=== PATIENT | male | born 1975 | race Caucasian/White ===

== ENCOUNTER 2018-05-15 14:24 | Emergency (ER) | payer OTHER ==
[~2018-05-15] VITALS: Ht 185.4 cm; Wt 128.0 kg
[~2018-05-15 14:24] MED LIST: CPR500 PO; FLUO20CA35 PO; LRT5 PO; METR-163 PO; OXYC-57 PO; PROM25TA PO
[2018-05-15 14:32] VITALS: Ht 185.4 cm; Wt 128.0 kg
--- NOTE | 2018-05-15 14:54 | EMERGENCY ROOM VISIT NOTE ---
ED Visit Note First contact with patient: 14:42 CHIEF COMPLAINT: Redness and swelling of the right lower extremity HISTORY OF PRESENT ILLNESS: This 42-year-old male patient presents to the emergency department, ambulatory, complaining of pain, redness, and swelling of the right lower extremity. 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 On Friday, he noticed pain in the pollard, and by Friday he states the swelling and redness developed. Symptoms have been worsening since then. The area has become red, warm, and very painful. The patient denies fever, chills, nausea, or loss of appetite. Movement of the right ankle is mildly decreased because of the pain. The patient's tetanus shot is up to date. The patient describes a pulsating sensation and states the swelling has been spreading down into the ankle and foot. REVIEW OF SYSTEMS: A 10 system review of systems was performed with positives and pertinent negatives listed in the history of present illness. All other systems were reviewed and are negative. ALLERGIES: None MEDICATIONS: None PMH: None SOCIAL HISTORY: The patient lives locally with family. He denies drug, alcohol use. He admits to smoking cigarettes. PHYSICAL EXAM: Vital Signs: Reviewed Nurse's notes, Temperature 36.6C, vital signs stable. GENERAL: This is a 42-year-old obese white male, in no acute distress, is non toxic in appearance, well-developed, well-nourished. SKIN: The lower extremity, distal to the knee and extending to the proximal foot is red, warm, very tender, and swollen. There is no lymphangitic streaking. There is no discharge. There is no fluctuance. 2+ edema noted. There is no induration. HEART: Regular rate and rhythm without murmur, gallop, or rub. LUNGS: Clear to auscultation bilaterally without wheezes, rales, or rhonchi. NEURO: Alert and oriented to person, place, and time. Normal sensation to light and sharp touch. Capillary reflex less than 2 seconds. Peripheral pulses 2 + bilaterally. RADIOLOGY: R VENOUS DOPP LOWER EXT UNILAT HISTORY: 42 years-old Male RLE pain/swelling acute pain and swelling of the right lower extremity COMPARISON: None available TECHNIQUE: Multiple real-time sonographic images of the right lower extremity the venous structures were obtained assessing grayscale appearance, color and spectral flow FINDINGS: There is normal flow, compressibility, phasicity and augmentation of the right lower extremity deep venous structures. Mild nonspecific subcutaneous edema about the lower leg. IMPRESSION: No sonographic evidence of deep venous thrombosis. The above report was generated using voice recognition software. It may contain grammatical, syntax or spelling errors. Electronically signed by: Darnell Torrez M.D. 05/15/2018 4:09 PM Dictated Date/Time: 05/15/2018 4:08 PM EMERGENCY DEPARTMENT COURSE: I examined the patient. IV access obtained, labs drawn. Labs reviewed. No leukocytosis, anemia, thrombus cytopenia. Renal, hepatic function and electrolytes without significant abnormalities. Ultrasound performed reviewed by myself and radiologist as above. Labs reviewed. I discussed the findings with the patient at bedside. He was given IV Ancef and p.o. Bactrim for the likely infection. I discussed with the patient the importance of outpatient antibiotics and advised him to have a follow-up in 24-48 hours. Patient states he is hoping to go back to work Friday. I advised him that he should be cleared by a medical provider prior to returning to work due to the infection. The patient verbalized agreement and understanding. Discharge instructions reviewed. The patient was discharged home in good condition. I attest that I have personally reviewed the patient's current medication list. Patient was found to have normal blood pressure on screening and does not require follow-up. Differential diagnosis includes cellulitis, abscess, DVT, superficial thrombus, septic joint, necrotizing fasciitis, burn, dermatitis, impetigo, erythema multiforme, bite, osteomyelitis, Lira-Salvatore Syndrome, gangrene, malignancy , and others DIAGNOSIS: Cellulitis of the right lower extremity The chart was completed utilizing [employer] voice recognition software. Grammatical errors, random word insertions, pronoun errors, and incomplete sentences are an occasional consequence of this system due to software limitations, ambient noise, and hardware issues. Any formal questions or concerns about the content, text, or information contained within the body of this dictation should be directly addressed to the provider for clarification. Current/Historical Medications Scheduled Cephalexin Monohydrate (Keflex), 500 MG PO QID Sulfa/Trimethoprim (Bactrim Ds 800MG/160MG), 1 TAB PO BID Allergies Coded Allergies: No Known Allergies (Unverified , 05/15/18) Vital Signs Date Time Temp Pulse Resp B/P (MAP) Pulse Ox O2 Delivery O2 Flow Rate FiO2 05/15/18 18:02 36.6 81 22 124/66 96 05/15/18 17:09 78 22 122/57 95 Room Air 05/15/18 14:32 36.6 86 18 160/102 95 Room Air Laboratory Results 05/15/18 16:22 Red Blood Count 4.14, Mean Corpuscular Volume 92.5, Mean Corpuscular Hemoglobin 30.7, Mean Corpuscular Hemoglobin Concent 33.2, Mean Platelet Volume 10.1, Neutrophils (%) (Auto) 55.3, Lymphocytes (%) (Auto) 29.7, Monocytes (%) (Auto) 9.7, Eosinophils (%) (Auto) 4.7, Basophils (%) (Auto) 0.2, Neutrophils # (Auto) 4.59, Lymphocytes # (Auto) 2.46, Monocytes # (Auto) 0.80, Eosinophils # (Auto) 0.39, Basophils # (Auto) 0.02 05/15/18 16:22 Test 05/15/18 16:22 White Blood Count 8.29 K/uL (4.8-10.8) Red Blood Count 4.14 M/uL (4.7-6.1) Hemoglobin 12.7 g/dL (14.0-18.0) Hematocrit 38.3 % (42-52) Mean Corpuscular Volume 92.5 fL (80-100) Mean Corpuscular Hemoglobin 30.7 pg (25-34) Mean Corpuscular Hemoglobin Concent 33.2 g/dl (32-36) Platelet Count 266 K/uL (130-400) Mean Platelet Volume 10.1 fL (7.4-10.4) Neutrophils (%) (Auto) 55.3 % Lymphocytes (%) (Auto) 29.7 % Monocytes (%) (Auto) 9.7 % Eosinophils (%) (Auto) 4.7 % Basophils (%) (Auto) 0.2 % Neutrophils # (Auto) 4.59 K/uL (1.4-6.5) Lymphocytes # (Auto) 2.46 K/uL (1.2-3.4) Monocytes # (Auto) 0.80 K/uL (0.11-0.59) Eosinophils # (Auto) 0.39 K/uL (0-0.5) Basophils # (Auto) 0.02 K/uL (0-0.2) RDW Standard Deviation 44.6 fL (36.4-46.3) RDW Coefficient of Variation 13.2 % (11.5-14.5) Immature Granulocyte % (Auto) 0.4 % Immature Granulocyte # (Auto) 0.03 K/uL (0.00-0.02) Anion Gap 7.0 mmol/L (3-11) Est Creatinine Clear Calc Drug Dose 177.5 ml/min Estimated GFR () 130.4 Estimated GFR (Non- 112.5 BUN/Creatinine Ratio 29.5 (10-20) Calcium Level 8.8 mg/dl (8.5-10.1) Total Bilirubin 0.2 mg/dl (0.2-1) Aspartate Amino Transf (AST/SGOT) 16 U/L (15-37) Alanine Aminotransferase (ALT/SGPT) 22 U/L (12-78) Alkaline Phosphatase 83 U/L (45-117) Total Protein 7.8 gm/dl (6.4-8.2) Albumin 3.4 gm/dl (3.4-5.0) Globulin 4.4 gm/dl (2.5-4.0) Albumin/Globulin Ratio 0.8 (0.9-2) Medications Administered Medications (Trade) Dose Ordered Sig/Rosa Route Start Time Stop Time Status Last Admin Dose Admin Cefazolin Sodium 1000 mg/Dextrose 57.5 ml @ 100 mls/hr NOW STAT IV 05/15/18 16:30 05/15/18 17:04 DC 05/15/18 17:08 100 MLS/HR Trimethoprim/ Sulfamethoxazole (Septra Ds 800/ 160MG Tab) 1 tab NOW STAT PO 05/15/18 16:30 05/15/18 16:37 DC 05/15/18 17:08 1 TAB Sodium Chloride 1,000 ml @ 999 mls/hr Q1H1M STAT IV 05/15/18 16:30 05/15/18 17:30 DC 05/15/18 16:30 999 MLS/HR Ketorolac Tromethamine (Toradol Inj) 30 mg NOW STAT IV 05/15/18 17:18 05/15/18 17:19 DC 05/15/18 17:18 30 MG Departure Information Impression Primary Impression: Cellulitis of right lower extremity Dispostion Home / Self-Care Condition GOOD Prescriptions Cephalexin Monohydrate (Keflex) 500 Mg Cap 500 MG PO QID for 10 Days, #40 CAP Prov: Leena Garcia PA-C 05/15/18 Sulfa/Trimethoprim (Bactrim Ds 800MG/160MG) Tab 1 TAB PO BID for 10 Days, #20 TAB Prov: Leena Garcia PA-C 05/15/18 Referrals Geronimo Hoover M.D. (PCP) Patient Instructions ED Infec Skin Cellulitis, [facility] Additional Instructions You were seen in the emergency department today for cellulitis of the right lower extremity. You were given IV antibiotics. Cephalexin(Keflex) 500mg: Take one pill four times daily for 10 days for your skin infection. All antibiotics can cause diarrhea. If this occurs and you feel worse or it does not resolve in 1-2 days follow up with your doctor or return to the Emergency Department as this could be signs of serious underlying problems. Any medication can cause an allergic reaction, stop the pills immediately and return to the ER for rash, hives, breathing difficulties, or swelling. Trimethoprim-Sulfamethoxazole(Bactrim DS): Take one pill twice daily for 10 days for your skin infection. All antibiotics can cause diarrhea. If this occurs and you feel worse or it does not resolve in 1-2 days follow up with your doctor or return to the Emergency Department as this could be signs of serious underlying problems. Any medication can cause an allergic reaction, stop the pills immediately and return to the ER for rash, hives, breathing difficulties, or swelling. You should have this reevaluated in 24-48 hours. This can be done in the emergency department or by her primary care provider. Do not return to work until cleared by medical professional. Use the crutches to help with ambulation and avoid weightbearing on the extremity. Ibuprofen(Motrin, Advil) may be used for fever or pain. Use 600mg every six hours as needed. Take with food. Avoid using more than 2400mg in a 24 hour period. Do not use 2400mg per day for more than three consecutive days without physician direction. Prolonged inappropriate use can lead to stomach upset or ulcers. (AND/OR) Acetaminophen(Tylenol) may be used for fever or pain. Use 1000mg every six hours as needed. Avoid using more than 3000mg in a 24 hour period. *Alternate these medications every 3-4 hours for increased pain control. Return immediately to the emergency department for any significantly worsening pain, swelling, redness, numbness or tingling of the extremity, discoloration of the toes, fever, body aches, chills, decreased appetite, or other concerning symptoms.
--- NOTE | 2018-05-15 16:10 | DIAGNOSTIC IMAGING REPORT ---
R VENOUS DOPP LOWER EXT UNILAT HISTORY: 42 years-old Male RLE pain/swelling acute pain and swelling of the right lower extremity COMPARISON: None available TECHNIQUE: Multiple real-time sonographic images of the right lower extremity the venous structures were obtained assessing grayscale appearance, color and spectral flow FINDINGS: There is normal flow, compressibility, phasicity and augmentation of the right lower extremity deep venous structures. Mild nonspecific subcutaneous edema about the lower leg. IMPRESSION: No sonographic evidence of deep venous thrombosis. The above report was generated using voice recognition software. It may contain grammatical, syntax or spelling errors. Electronically signed by: Darnell Torrez M.D. 05/15/2018 4:09 PM Dictated Date/Time: 05/15/2018 4:08 PM
[2018-05-15] MEDS ORDERED: SODIUM CHLORIDE 0.9% 1000ML 1,000 ML IV STA (16:30)
[2018-05-15] MEDS ORDERED: CEFAZOLIN IV 1,000 MG in DEXTROSE 5% 50ML 50 ML IV STA (16:30)
[2018-05-15] MEDS ORDERED: SULFAMETHOXAZOLE/TRIMETHOPRIM DS 800/160MG TAB PO STA (16:30)
[2018-05-15 16:47] LABS: BASO % 0.2 %; BASO ABS # 0.02 K/uL (0-0.2); EOS % 4.7 %; EOS ABS # 0.39 K/uL (0-0.5); HEMATOCRIT 38.3 % (42-52); HEMOGLOBIN 12.7 g/dL (14.0-18.0); IG# 0.03 K/uL (0.00-0.02); LYMPH % 29.7 %; LYMPH ABS # 2.46 K/uL (1.2-3.4); MEAN CELL VOLUME 92.5 fL (80-100); MEAN CORPUSCULAR HEMOGLOBIN 30.7 pg (25-34); MEAN CORPUSCULAR HGB CONC 33.2 g/dl (32-36); MEAN PLATELET VOLUME 10.1 fL (7.4-10.4); MONO % 9.7 %; NEUT % 55.3 %; NEUT ABS # 4.59 K/uL (1.4-6.5); PLATELET COUNT 266 K/uL (130-400); RED CELL DISTRIBUTION WIDTH CV 13.2 % (11.5-14.5); RED CELL DISTRIBUTION WIDTH SD 44.6 fL (36.4-46.3); WHITE BLOOD COUNT 8.29 K/uL (4.8-10.8)
[2018-05-15 17:04] LABS: ALBUMIN 3.4 gm/dl (3.4-5.0); CALCIUM 8.8 mg/dl (8.5-10.1); CREATININE 0.76 mg/dl (0.60-1.40); POTASSIUM 4.3 mmol/L (3.5-5.1); TOTAL PROTEIN 7.8 gm/dl (6.4-8.2)
[2018-05-15] MEDS ORDERED: KETOROLAC TROMETHAMINE 30 MG/ML VIAL IV STA (17:18)
[2018-05-15] MEDS ORDERED: CEPH500C PO (17:21)
[2018-05-15] MEDS ORDERED: SULF800T23 PO (17:21)
[2018-05-15 18:02] VITALS: BP 124/66; PULSE 81; TEMP 36.6; O2SAT 96
== END 2018-05-15 18:02 | disposition home or self-care (01) ==
LOC: C.EDB 14:25 → C.EDC 18:02
DX: L03.115 Cellulitis of right lower limb (principal)

== ENCOUNTER 2021-07-27 09:21 | Inpatient (IN) ==
[2021-07-27] MEDS ORDERED: SODIUM CHLORIDE 0.9% 1000ML 1,000 ML IV STA (09:43)
[2021-07-27] MEDS ORDERED: ONDANSETRON INJ 2 MG/ML 2 ML VIAL IV STA (09:43)
[2021-07-27] MEDS ORDERED: cefTRIAXone SODIUM 1,000 MG/50 ML BAG IV STA (09:43)
--- NOTE | 2021-07-27 09:59 | Emergency Department Note ---
Impression & Plan Cellulitis of chest wall, Axillary lymphadenopathy, Chest pain ED Provider Note NAME: ANASTASIA GARNICA AGE: 45 SEX: M : 1975 ARRIVES VIA: Walk-In INFORMANT: Patient, ED PROVIDER(S): Werner Herzog DO CHIEF COMPLAINT: Chest pain HPI: The patient is a 45-year-old male who presented to the emergency department for right-sided chest pain. The patient describes right-sided chest pain which is in his right axilla. He noticed this a few days ago as a swelling but now has a golf ball sized swelling under his right axilla. He complains of nausea vomiting and severe pain. He denies having any fever. 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 He does not remember ever having Lyme disease. He does not complain of any headache or joint pain. He states his pain is moderate to severe and worsened with palpation over the right axilla. He is not seen a provider prior to coming to the emergency department. ROS: See above HPI for pertinent positives & negatives. A total of 10 systems reviewed and were otherwise negative. PAST MEDICAL HISTORY: See Below PAST SURGICAL HISTORY: See Below FAMILY HISTORY: See Below SOCIAL HISTORY: See Below HOME MEDICATIONS: See Below ALLERGIES: See Below VITALS: See Below PHYSICAL EXAMINATION: GENERAL: The patient is awake and alert. He is very anxious appearing and appears to be uncomfortable. EYES: The conjunctivae are clear. The pupils are round and reactive. EARS, NOSE, MOUTH AND THROAT: The nose is without any evidence of any deformity. Mucous membranes are moist. Tongue is midline. NECK: The neck is nontender and supple. RESPIRATORY: Normal respiratory effort is noted there is no evidence of wheezing rhonchi or rales CARDIOVASCULAR: Regular rate and rhythm noted there no murmurs rubs or gallops normal S1 normal S2. GASTROINTESTINAL: The abdomen is soft. Abdomen is nontender. MUSCULOSKELETAL/EXTREMITIES: There is no evidence of gross deformity full range of motion is noted in the hips and shoulders. SKIN: There is an area under the right breast consistent with a recent tick bite and removal. There is also significant swelling in the right axilla with surrounding erythema. This involves the right upper arm as well as the right chest wall. NEUROLOGIC: Patient is awake alert and oriented x3 strength is symmetric patellar reflexes are 2+ bilaterally MEDICAL DECISION MAKING: The patient is a 45-year-old male who presented to the emergency department in significant pain. The patient was found to have significant cellulitis on his right upper chest wall and into his right axilla. He had multiple reactive lymph nodes on exam as well as by CT. I was concerned there may be an abscess. No abscess was noted by CT. I discussed the patient's laboratory and radiographic studies with him. He was treated with IV fluids IV pain medication and IV antibiotics. He was still in very significant pain. Given the patient's elevation in his white blood cell count I feel the patient may have a prolonged course. Given that the cellulitis is over the chest wall I discussed this case with the on-call [facility] group. They have agreed to evaluate the patient in the emergency department for further management and disposition. Triage Nursing notes reviewed. Prior medical records reviewed Vital Signs: reviewed and remarkable for hypotension. Differential diagnosis: Cellulitis, abscess, MRSA infection, DVT, necrotizing fasciitis, dermatitis, drug eruption, allergic reaction, as well as other pathologies. ER treatment provided: See below Diagnostics interpreted by me: ECG: EKG was obtained in the emergency department. My interpretation is normal sinus rhythm at 64 bpm. There is no ectopy. There was no acute ST segment abnormalities noted. No previous tracing was available. Cardiac Monitoring: An order was placed for continuous cardiac monitoring. The monitor shows a rate of 68 bpm with sinus rhythm. Laboratory studies: As stated above and show below. Imaging studies: See below Consultation(s): I discussed this case with Coral who is on-call for the [facility] group. Past Med/Surg History Medical History Depression Dyslipidemia History of opioid abuse HTN (hypertension) Tobacco use Surgical History (Updated 07/27/21 @ 13:17 by Alma Dia PA-C) History of surgical removal of pilonidal cyst Family History (Updated 07/27/21 @ 13:26 by Alma Dia PA-C) Father Diabetes Mother Coronary heart disease Social History (Updated 07/27/21 @ 13:27 by Alma Dia PA-C) Smoking Status: Current every day smoker Tobacco Type: Cigarettes Hx Alcohol Use: No Hx Substance Use: Yes Prescribed Medications: Opiates Non-Prescribed Medications: Marijuana Preferred Language: Puerto Rican Feels Safe at Home: Yes Allergies Allergies Allergy/AdvReac Type Severity Reaction Status Date / Time No Known Allergies Allergy Verified 07/27/21 10:35 Home Meds Home Medications Medication Instructions Recorded Confirmed aspirin 81 mg tablet,delayed 81 mg PO DAILY 07/27/21 07/27/21 release atorvastatin 20 mg tablet (Lipitor) 20 mg PO HS 07/27/21 07/27/21 buprenorphine HCl 8 mg sublingual 8 mg SUBLINGUAL BID 07/27/21 07/27/21 tablet celecoxib 200 mg capsule (Celebrex) 200 mg PO QDD 07/27/21 07/27/21 cholecalciferol (vitamin D3) 125 5,000 unit PO QAM 07/27/21 07/27/21 mcg (5,000 unit) capsule (Dialyvite Vitamin D) lisinopril 10 mg tablet (Zestril) 10 mg PO QAM 07/27/21 07/27/21 metoprolol succinate 50 mg 50 mg PO BID 07/27/21 07/27/21 tablet,extended release 24 hr (Toprol XL) sertraline 100 mg tablet (Zoloft) 100 mg PO QAM 07/27/21 07/27/21 trazodone 50 mg tablet 50 mg PO HS 07/27/21 07/27/21 Results & Data (ED) Vital Signs Vital Signs - 24 hr 07/27/21 09:30 07/27/21 11:31 Temperature 36.9 C Temperature Source Oral Pulse Rate 79 Pulse Rate [Finger] 68 Pulse Rhythm Regular Pulse Rhythm [Finger] Regular Pulse Strength Normal Respiratory Rate 22 18 Respiratory Effort / Characteristics Non-Labored Spontaneous Non-Labored Respiratory Depth Normal Normal Respiratory Pattern Regular Blood Pressure 125/76 Blood Pressure [Left Arm] 128/53 L Blood Pressure Mean 92 Blood Pressure Mean [Left Arm] 78 Blood Pressure Position Sitting Pulse Oximetry 98 98 Oxygen Delivery Method Room Air Room Air Sepsis Recent Fever Within 48 Hours No Sepsis New/Unexplained Change in Mental Status N/A Sepsis Action Taken by Nursing No Action Required Home Medications Current Medication List: was personally reviewed by me Laboratory Data Attestation: I reviewed the patient's lab results. Result diagrams: 07/27/21 09:55 07/27/21 09:55 Lab Results 07/27/21 07/27/21 07/27/21 Range/Units 09:55 09:55 09:55 WBC 25.29 H (4.8-10.8) K/uL RBC 4.33 L (4.7-6.1) M/uL Hgb 13.5 L (14.0-18.0) g/dL Hct 38.8 L (42-52) % MCV 89.6 (80-100) fL MCH 31.2 (25-34) pg MCHC 34.8 (32-36) g/dL RDW Std Deviation 43.2 (36.4-46.3) fL RDW Coeff of Cathleen 13.1 (11.5-14.5) % Plt Count 192 (130-400) K/uL MPV 9.6 (7.4-10.4) fL Immature Gran % (Auto) 0.3 % Neut % (Auto) 85.2 % Lymph % (Auto) 6.9 % Crisp % (Auto) 6.9 % Eos % (Auto) 0.6 % Baso % (Auto) 0.1 % Neut # (Auto) 21.54 H (1.4-6.5) K/uL Lymph # (Auto) 1.75 (1.2-3.4) K/uL Crisp # (Auto) 1.74 H (0.11-0.59) K/uL Eos # (Auto) 0.16 (0-0.5) K/uL Baso # (Auto) 0.02 (0-0.2) K/uL Immature Gran # (Auto) 0.08 H (0.00-0.02) K/uL ESR 31 H (0-15) mm/hr Sodium 136 (136-145) mmol/L Potassium 3.8 (3.5-5.1) mmol/L Chloride 105 (98-107) mmol/L Carbon Dioxide 23 (21-32) mmol/L Anion Gap 8.0 (3-11) BUN 18 (7-18) mg/dl Creatinine 0.97 (0.6-1.4) mg/dl Est Cr Clr Drug Dosing 117.7 ml/min Est GFR ( Amer) 108.8 ml/min Est GFR (Non-Af Amer) 93.9 ml/min BUN/Creatinine Ratio 18.5 (10-20) Glucose 118 H (70-99) mg/dl Lactate (0.4-2.0) mmol/L Calcium 9.3 (8.5-10.1) mg/dl Total Bilirubin 0.7 (0.2-1) mg/dl AST 15 (15-37) U/L ALT 24 (12-78) U/L Alkaline Phosphatase 89 (45-117) U/L Troponin I < 0.015 (0-0.045) ng/ml C-Reactive Protein 17.30 H (0-0.29) mg/dl Total Protein 7.9 (6.4-8.2) gm/dl Albumin 3.4 (3.4-5.0) gm/dl Globulin 4.5 H (2.5-4.0) gm/dl Albumin/Globulin Ratio 0.8 L (0.9-2) Procalcitonin (0-0.5) ng/ml Lyme Disease IgG Ab (Negative) Lyme Disease IgM Ab (Negative) COVID-19 Eval Order SARS-CoV-2 (PCR) (Negative) 07/27/21 07/27/21 07/27/21 Range/Units 09:55 11:45 11:45 WBC (4.8-10.8) K/uL RBC (4.7-6.1) M/uL Hgb (14.0-18.0) g/dL Hct (42-52) % MCV (80-100) fL MCH (25-34) pg MCHC (32-36) g/dL RDW Std Deviation (36.4-46.3) fL RDW Coeff of Cathleen (11.5-14.5) % Plt Count (130-400) K/uL MPV (7.4-10.4) fL Immature Gran % (Auto) % Neut % (Auto) % Lymph % (Auto) % Crisp % (Auto) % Eos % (Auto) % Baso % (Auto) % Neut # (Auto) (1.4-6.5) K/uL Lymph # (Auto) (1.2-3.4) K/uL Crisp # (Auto) (0.11-0.59) K/uL Eos # (Auto) (0-0.5) K/uL Baso # (Auto) (0-0.2) K/uL Immature Gran # (Auto) (0.00-0.02) K/uL ESR (0-15) mm/hr Sodium (136-145) mmol/L Potassium (3.5-5.1) mmol/L Chloride (98-107) mmol/L Carbon Dioxide (21-32) mmol/L Anion Gap (3-11) BUN (7-18) mg/dl Creatinine (0.6-1.4) mg/dl Est Cr Clr Drug Dosing ml/min Est GFR ( Amer) ml/min Est GFR (Non-Af Amer) ml/min BUN/Creatinine Ratio (10-20) Glucose (70-99) mg/dl Lactate (0.4-2.0) mmol/L Calcium (8.5-10.1) mg/dl Total Bilirubin (0.2-1) mg/dl AST (15-37) U/L ALT (12-78) U/L Alkaline Phosphatase (45-117) U/L Troponin I (0-0.045) ng/ml C-Reactive Protein (0-0.29) mg/dl Total Protein (6.4-8.2) gm/dl Albumin (3.4-5.0) gm/dl Globulin (2.5-4.0) gm/dl Albumin/Globulin Ratio (0.9-2) Procalcitonin 1.07 H (0-0.5) ng/ml Lyme Disease IgG Ab Negative (Negative) Lyme Disease IgM Ab Negative (Negative) COVID-19 Eval Order Covid19 at [facility] SARS-CoV-2 (PCR) NEGATIVE (Negative) 07/27/21 Range/Units 13:25 WBC (4.8-10.8) K/uL RBC (4.7-6.1) M/uL Hgb (14.0-18.0) g/dL Hct (42-52) % MCV (80-100) fL MCH (25-34) pg MCHC (32-36) g/dL RDW Std Deviation (36.4-46.3) fL RDW Coeff of Cathleen (11.5-14.5) % Plt Count (130-400) K/uL MPV (7.4-10.4) fL Immature Gran % (Auto) % Neut % (Auto) % Lymph % (Auto) % Crisp % (Auto) % Eos % (Auto) % Baso % (Auto) % Neut # (Auto) (1.4-6.5) K/uL Lymph # (Auto) (1.2-3.4) K/uL Crisp # (Auto) (0.11-0.59) K/uL Eos # (Auto) (0-0.5) K/uL Baso # (Auto) (0-0.2) K/uL Immature Gran # (Auto) (0.00-0.02) K/uL ESR (0-15) mm/hr Sodium (136-145) mmol/L Potassium (3.5-5.1) mmol/L Chloride (98-107) mmol/L Carbon Dioxide (21-32) mmol/L Anion Gap (3-11) BUN (7-18) mg/dl Creatinine (0.6-1.4) mg/dl Est Cr Clr Drug Dosing ml/min Est GFR ( Amer) ml/min Est GFR (Non-Af Amer) ml/min BUN/Creatinine Ratio (10-20) Glucose (70-99) mg/dl Lactate 1.2 (0.4-2.0) mmol/L Calcium (8.5-10.1) mg/dl Total Bilirubin (0.2-1) mg/dl AST (15-37) U/L ALT (12-78) U/L Alkaline Phosphatase (45-117) U/L Troponin I (0-0.045) ng/ml C-Reactive Protein (0-0.29) mg/dl Total Protein (6.4-8.2) gm/dl Albumin (3.4-5.0) gm/dl Globulin (2.5-4.0) gm/dl Albumin/Globulin Ratio (0.9-2) Procalcitonin (0-0.5) ng/ml Lyme Disease IgG Ab (Negative) Lyme Disease IgM Ab (Negative) COVID-19 Eval Order SARS-CoV-2 (PCR) (Negative) Administered Medications Acetaminophen (Acetaminophen 500 Mg Tab) 1,000 mg PO Q8H DAVID Stop: 08/26/21 13:14 Last Admin: 07/27/21 13:32 Dose: 1,000 mg Documented by: [id number] Sodium Chloride (Nss 1000ml) 1,000 mls @ 125 mls/hr IV .Q8H STA Stop: 07/27/21 17:42 Last Admin: 07/27/21 10:07 Dose: 125 mls/hr Documented by: [id number] Vancomycin HCl 2,000 mg/ (Sodium Chloride) 540 mls @ 200 mls/hr IV NOW ONE Stop: 07/27/21 14:37 Last Admin: 07/27/21 12:42 Dose: 200 mls/hr Documented by: [id number] Morphine Sulfate (Morphine Sulfate 4 Mg/Ml 1 Ml Carp\Vial) 4 mg IV Q30M PRN PRN Reason: Pain Stop: 08/10/21 09:42 Last Admin: 07/27/21 11:38 Dose: 4 mg Documented by: [id number] Admin: 07/27/21 10:06 Dose: 4 mg Documented by: [id number] Discontinued Medications Ceftriaxone Sodium (Rocephin) 1,000 mg in 50 mls @ 100 mls/hr IV NOW STA Stop: 07/27/21 10:12 Last Admin: 07/27/21 10:05 Dose: 100 mls/hr Documented by: [id number] Sodium Chloride (Nss 1000ml) 1,000 mls @ 999 mls/hr IV .Q1H1M ONE Stop: 07/27/21 12:56 Last Admin: 07/27/21 12:42 Dose: 999 mls/hr Documented by: [id number] Promethazine HCl 12.5 mg/ (Sodium Chloride) 50.5 mls @ 202 mls/hr IV NOW STA Stop: 07/27/21 13:02 Last Admin: 07/27/21 13:32 Dose: 202 mls/hr Documented by: [id number] Ondansetron HCl (Ondansetron Inj 2 Mg/Ml 2 Ml Vial) 4 mg IV NOW STA Stop: 07/27/21 09:44 Last Admin: 07/27/21 10:06 Dose: 4 mg Documented by: [id number] Imaging Data Radiologist's Impression: Chest CT 07/27/21 09:43 CT chest diagnostic wo con CLINICAL HISTORY: right axiliary pain TECHNIQUE: Multidetector row helical CT of the chest was performed. Coronal and sagittal reformations were obtained. Automated dose lowering techniques and/or adjustment according to patient size were utilized for this exam. Comparison: None available at the time of this dictation. FINDINGS: Lungs and pleura: Normal. Heart and pericardium: Heart size is normal. No pericardial effusion. Vessels: Moderate atherosclerotic changes in the aorta and coronary arteries. Mediastinum and shalom: Unremarkable. Chest wall and lower neck: There is fat stranding and skin thickening in the right axilla with subcentimeter axillary nodes. Abdomen: A hiatal hernia is seen. Bones: Degenerative changes in the thoracic spine. IMPRESSION: Right axillary fat stranding and skin thickening likely representing acute infectious/inflammatory process such as cellulitis. Underlying reactive axillary lymph nodes noted. No drainable fluid collection is seen. ACT 112: Negative or not required by law. Electronically signed by: Sharath Nolasco M.D. 07/27/2021 11:25 AM Discharge Plan Visit Data Chief Complaint: Arm Pain Stated Complaint: RT SIDED ARM PAIN,RED SWOLLEN ED Provider: Werner Herzog Discharge Problem: Cellulitis of chest wall, Axillary lymphadenopathy, Chest pain Patient Disposition: Being Evaluated by Hospitalist Forms Stand Alone Forms: [facility] Prescriptions Prescriptions: No Action celecoxib [Celebrex] 200 mg capsule 200 mg PO QDD RF: 0 atorvastatin [Lipitor] 20 mg tablet 20 mg PO HS RF: 0 trazodone 50 mg tablet 50 mg PO HS RF: 0 metoprolol succinate [Toprol XL] 50 mg tablet extended release 24 hr 50 mg PO BID RF: 0 sertraline [Zoloft] 100 mg tablet 100 mg PO QAM RF: 0 lisinopril [Zestril] 10 mg tablet 10 mg PO QAM RF: 0 cholecalciferol (vitamin D3) [Dialyvite Vitamin D] 125 mcg (5,000 unit) capsule 5,000 unit PO QAM RF: 0 aspirin 81 mg Tablet,Delayed Release (Dr/Ec) 81 mg PO DAILY RF: 0 buprenorphine HCl 8 mg Tablet, Sublingual 8 mg SUBLINGUAL BID RF: 0 Referrals Referrals: PCP,NO [Physician] -
[2021-07-27] MEDS: MoRPHine SULFATE 4 MG/ML 1 ML CARP\\VIAL IV PRN ×2 (10:06→11:38)
[2021-07-27 10:21] LABS: Hematocrit (blood only) 38.8 % (42-52); Hemoglobin 13.5 g/dL (14.0-18.0); Mean Corpuscular Hemoglobin 31.2 pg (25-34); Mean Corpuscular Hgb Conc 34.8 g/dL (32-36); Mean Corpuscular Volume 89.6 fL (80-100); Mean Platelet Volume 9.6 fL (7.4-10.4); Platelet Count 192 K/uL (130-400); RDW Coefficient of Variation 13.1 % (11.5-14.5); RDW Standard Deviation 43.2 fL (36.4-46.3); Red Blood Count 4.33 M/uL (4.7-6.1); White Blood Count 25.29 K/uL (4.8-10.8)
[2021-07-27 10:39] LABS: Alanine Aminotransferase 24 U/L (12-78); Albumin Level 3.4 gm/dl (3.4-5.0); Aspartate Aminotransferase 15 U/L (15-37); BUN Creatinine Ratio 18.5 (10-20); Blood Urea Nitrogen 18 mg/dl (7-18); Calcium 9.3 mg/dl (8.5-10.1); Carbon Dioxide 23 mmol/L (21-32); Chloride 105 mmol/L (98-107); Creatinine Clr Calc Pharmacy 117.7 ml/min; Est GFR (African American) 108.8 ml/min; Est GFR (Non-African American) 93.9 ml/min; Glucose 118 mg/dl (70-99); Potassium 3.8 mmol/L (3.5-5.1); Sodium 136 mmol/L (136-145)
[2021-07-27 10:43] LABS: Albumin Globulin Ratio 0.8 (0.9-2); Alkaline Phosphatase 89 U/L (45-117); Bilirubin,Total 0.7 mg/dl (0.2-1); Globulin 4.5 gm/dl (2.5-4.0); Total Protein 7.9 gm/dl (6.4-8.2); Troponin I < 0.015 ng/ml (0-0.045)
[2021-07-27 11:08] LABS: Basophils # (auto) 0.02 K/uL (0-0.2); Basophils % (auto) 0.1 %; Eosinophils # (auto) 0.16 K/uL (0-0.5); Eosinophils % (auto) 0.6 %; Immature Granulocytes # (auto) 0.08 K/uL (0.00-0.02); Immature Granulocytes % (auto) 0.3 %; Lymphocytes # (auto) 1.75 K/uL (1.2-3.4); Lymphocytes % (auto) 6.9 %; Monocytes # (auto) 1.74 K/uL (0.11-0.59); Monocytes % (auto) 6.9 %; Neutrophils # (auto) 21.54 K/uL (1.4-6.5); Neutrophils % (auto) 85.2 %
[2021-07-27 11:10] LABS: Procalcitonin 1.07 ng/ml (0-0.5)
[2021-07-27 11:16] LABS: Lyme Ab IgG w/WB Rflx Negative (Negative); Lyme Ab IgM w/WB Rflx Negative (Negative)
--- NOTE | 2021-07-27 11:26 | CT Scan Report ---
CT chest diagnostic wo con CLINICAL HISTORY: right axiliary pain TECHNIQUE: Multidetector row helical CT of the chest was performed. Coronal and sagittal reformations were obtained. Automated dose lowering techniques and/or adjustment according to patient size were u tilized for this exam. Comparison: None available at the time of this dictation. FINDINGS: Lungs and pleura: Normal. Heart and pericardium: Heart size is normal. No pericardial effusion. Vessels: Moderate atherosclerotic changes in the aorta and coronary arteries. Mediastinum and shalom: Unremarkable. Chest wall and lower neck: There is fat stranding and skin thickening in the right axilla with subcen timeter axillary nodes. Abdomen: A hiatal hernia is seen. Bones: Degenerative changes in the thoracic spine. IMPRESSION: Right axillary fat stranding and skin thickening likely representing acute infectious/inflammatory pr ocess such as cellulitis. Underlying reactive axillary lymph nodes noted. No drainable fluid collecti on is seen. ACT 112: Negative or not required by law. Electronically signed by: Sharath Nolasco M.D. 07/27/2021 11:25 AM
[2021-07-27] MEDS ORDERED: SODIUM CHLORIDE 0.9% 1000ML 1,000 ML IV ONE (11:56)
[2021-07-27] MEDS ORDERED: VANCOMYCIN CONSULT ACTIVE PRN (11:56)
[2021-07-27] MEDS ORDERED: VANCOMYCIN HCL 2,000 MG in SODIUM CHLORIDE 0.9% 500 ML IV ONE (11:56)
[2021-07-27] MEDS ORDERED: PROMETHAZINE HCL 12.5 MG in SODIUM CHLORIDE 0.9% 50 ML IV STA (12:48)
--- NOTE | 2021-07-27 12:55 | History & Physical Report ---
Date of Service July 27, 2021 Assessment & Plan (1) Cellulitis: Plan: Sepsis Patient is 45 y/o M with PMH HTN, dyslipidemia, depression, H/O opioid abuse presented to ER with complaint of right axilla and chest redness and pain. 5 days ago squeezed pimple right axilla. Tactile fever, N/V. H/O tick bite to right breast several days ago In ER patient afebrile, P: 79, R: 22, BP 125/76, 98% on room air. WBC:25 ESR: 31, CRP: 17, procalcitonin: 1.0. Negative Lyme. CT chest: Right axillary fat stranding and skin thickening likely representing acute infectious/inflammatory process such as cellulitis. Underlying reactive axillary lymph nodes noted. No drainable fluid collection is seen. In ER patient given 1 L NSS, Rocephin and vancomycin IV Meets sepsis criteria Blood culture pending Lactate pending, anaplasmosis pending Continue Rocephin, vancomycin IVF CBC, BMP in a.m. (2) HTN (hypertension): Plan: Continue lisinopril, metoprolol (3) Dyslipidemia: Plan: Continue atorvastatin (4) History of opioid abuse: Plan: Continue Suboxone (5) Depression: Plan: Continue sertraline (6) Tobacco use: Plan: Denies nicotine patch Smoking cessation recommended DVT Prophylaxis -SCDs Full Code Follows with Dr Valles for routine care Pt was seen and care coordinated with Dr Britton. See addendum History of Present Illness Chief Complaint: Right chest redness and pain Primary Care Provider: Bentley Valles Patient is 45 y/o M with PMH HTN, dyslipidemia, depression, H/O opioid abuse presented to ER with complaint of right axilla and chest redness and pain. Patient states 5 days ago noticed pimple-like area to right axilla which he squeezed. Reports did not have any drainage. Since that time he has developed surrounding erythema and edema which is extended to right chest wall. Complains of significant tenderness to area. Patient states past couple of days with tactile fever, headache, body aches, nausea, vomiting, diarrhea. Patient states couple days ago had tick attached to right chest under right breast. He reports he attempted to remove however is uncertain if he removed entire tick. 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 Denies diaphoresis, hematemesis, hematochezia, syncope, vision changes, neck pain, SOB, orthopnea, palpitations, cough, sore throat, choking, otalgia, rhinorrhea, abdominal pain, paresthesias, weakness, extremity weakness, extremity edema, other rashes, urinary symptoms. Denies history of known MRSA in past. In ER patient afebrile, P: 79, R: 22, BP 125/76, 98% on room air. WBC:25 ESR: 31, CRP: 17, procalcitonin: 1.0. Negative Lyme. Lactate pending, anaplasmosis pending. CT chest: Right axillary fat stranding and skin thickening likely representing acute infectious/inflammatory process such as cellulitis. Underlying reactive axillary lymph nodes noted. No drainable fluid collection is seen. In ER patient given 1 L NSS, Rocephin and vancomycin IV Allergies Allergy/AdvReac Type Severity Reaction Status Date / Time No Known Allergies Allergy Verified 07/27/21 10:35 Home Medications Medication Instructions Recorded Confirmed Type aspirin 81 mg tablet,delayed 81 mg PO DAILY 07/27/21 07/27/21 History release atorvastatin 20 mg tablet (Lipitor) 20 mg PO HS 07/27/21 07/27/21 History buprenorphine HCl 8 mg sublingual 8 mg SUBLINGUAL BID 07/27/21 07/27/21 History tablet celecoxib 200 mg capsule (Celebrex) 200 mg PO QDD 07/27/21 07/27/21 History cholecalciferol (vitamin D3) 125 5,000 unit PO QAM 07/27/21 07/27/21 History mcg (5,000 unit) capsule (Dialyvite Vitamin D) lisinopril 10 mg tablet (Zestril) 10 mg PO QAM 07/27/21 07/27/21 History metoprolol succinate 50 mg 50 mg PO BID 07/27/21 07/27/21 History tablet,extended release 24 hr (Toprol XL) sertraline 100 mg tablet (Zoloft) 100 mg PO QAM 07/27/21 07/27/21 History trazodone 50 mg tablet 50 mg PO HS 07/27/21 07/27/21 History Past Med/Surg History Medical History Depression Dyslipidemia History of opioid abuse HTN (hypertension) Tobacco use Surgical History (Updated 07/27/21 @ 13:17 by Alma Dia PA-C) History of surgical removal of pilonidal cyst Family History (Updated 07/27/21 @ 13:26 by Alma Dia PA-C) Father Diabetes Mother Coronary heart disease Social History (Updated 07/27/21 @ 13:27 by Alma Dia PA-C) Smoking Status: Current every day smoker Tobacco Type: Cigarettes Cigarettes Per Day: 10; Second Hand Exposure: Yes; Do You Dip or Chew Tobacco: No; Tobacco Cessation Education Requested by Patient: No Hx Alcohol Use: Yes Alcohol type: beer Hx Substance Use: Yes Prescribed Medications: Opiates Non-Prescribed Medications: Marijuana Last Used Substance Other:: marijuana use daily. substance abuse sober for years. Preferred Language: Syriac Communication Ability: Effective Formal Wear Rental Clerk Required: Yes and No Beliefs That Will Affect Care: None Current Living Situation: Parent Current Living Situation Comment: lives @ home with mother and daughter. Other Information That Helps Us Care for You: No Feels Safe at Home: Yes Safety Concerns: Feels Safe At This Time Assistive Devices: None Review of Systems Review of Systems: All systems reviewed & are unremarkable except as noted in HPI & below Physical Exam Physical Exam: General: mild distress secondary to nausea and pain, WDWN Head: normocephalic, atraumatic Eyes: PERRL, EOM's intact, conjunctiva non-injected, anicteric ENT: normal inspection external ears, nose, mucous membranes dry Neck: supple, trachea midline Lungs: clear, no respiratory distress, no wheezing/rhonchi/rales CV: RRR, no murmur, no pretibial edema Chest wall: +scab distal to right breast with small area of erythema. +erythema, warmth right axilla extending to right lateral and anterior chest, no purulent drainage + lymphadenopathy axilla Abd: normal BS, soft, non-tender Ext: no cyanosis, no calf tenderness Neuro: A&O x 3, no focal deficits noted, normal affect Skin: As above on chest wall, + multiple scabbed areas to on arms hands and fingers, skin warm, dry Results & Data Results & Data ([facility]) Vital Signs (Past 12 Hours) Vital Signs Temp Pulse Pulse Resp BP BP Pulse Ox 07/27/21 11:31 68 18 128/53 L 98 07/27/21 09:30 36.9 C 79 22 125/76 98 Laboratory Results Short CBC 07/27/21 Range/Units 09:55 WBC 25.29 H (4.8-10.8) K/uL Hgb 13.5 L (14.0-18.0) g/dL Hct 38.8 L (42-52) % Plt Count 192 (130-400) K/uL BMP 07/27/21 09:55 Sodium 136 Potassium 3.8 Chloride 105 Carbon Dioxide 23 BUN 18 Creatinine 0.97 Glucose 118 H Calcium 9.3 Cardiac Enzymes 07/27/21 Range/Units 09:55 Troponin I < 0.015 (0-0.045) ng/ml Liver Function 07/27/21 Range/Units 09:55 Total Bilirubin 0.7 (0.2-1) mg/dl AST 15 (15-37) U/L ALT 24 (12-78) U/L Alkaline Phosphatase 89 (45-117) U/L Albumin 3.4 (3.4-5.0) gm/dl Diagnostic Findings Chest CT 07/27/21 09:43 CT chest diagnostic wo con CLINICAL HISTORY: right axiliary pain TECHNIQUE: Multidetector row helical CT of the chest was performed. Coronal and sagittal reformations were obtained. Automated dose lowering techniques and/or adjustment according to patient size were utilized for this exam. Comparison: None available at the time of this dictation. FINDINGS: Lungs and pleura: Normal. Heart and pericardium: Heart size is normal. No pericardial effusion. Vessels: Moderate atherosclerotic changes in the aorta and coronary arteries. Mediastinum and shalom: Unremarkable. Chest wall and lower neck: There is fat stranding and skin thickening in the right axilla with subcentimeter axillary nodes. Abdomen: A hiatal hernia is seen. Bones: Degenerative changes in the thoracic spine. IMPRESSION: Right axillary fat stranding and skin thickening likely representing acute infectious/inflammatory process such as cellulitis. Underlying reactive axillary lymph nodes noted. No drainable fluid collection is seen. ACT 112: Negative or not required by law. Electronically signed by: Sharath Nolasco M.D. 07/27/2021 11:25 AM Code Status & VTE Plan VTE Prophylaxis Plan VTE Prophylaxis will be ordered: Yes Supervising Physician Co-Signing Physician Notes I have seen and examined the patient and have discussed the case with the provider above. I agree with the assessment and plan as stated. 45 yo M emiliano rodriguez who was out working a full day shift yesterday presents today with in creased swelling and pain in his right axilla where he has a swelling that is tender and associated with cellulitis. He is in acute distress with significant nausea unsuccessfully treated with IV morphine and IV antiemetics. WBC was elevated, however, doesn't meet sepsis criteria at this time. He does have a slightly elevated procalcitonin, however, which would make this case borderline. I agree with admission for intravenous antibiotics and palliative therapies. MRSA screening is positive so will continue with broad spectrum antibiotic therapy at this time including Vancomycin. With recent history of a tick bite, current cellulitis may be related to a rickettsial illness. However, with a negative Lyme, would await a positive result for the anaplasma screening OR add doxycycline and investigate alternatives if he doesn't clinically improve on current therapy. Physical exam as above with large bright pink right axillary area with extension of erythema distally down the underside of the upper right arm and somewhat encompassing the right lateral chest wall, tender to touch. Large swelling that is warm and tender in the right axilla, not open or expressing any drainage. Physical exam is otherwise unremarkable other than noted poor personal hygiene. Lactate 1.2, chest CT revealed no evidence of drainable fluid collection. Cont with cautious use of narcotic pain medications in the setting of h/o opiate abuse per his self-report. Cont suboxone with IV Toradol for now. Escalate to narcotics only if NSAIDs and Tylenol is ineffective. DO Tobi
[2021-07-27] MEDS ORDERED: CONSULT PHARMACY STA (13:12)
[2021-07-27] MEDS: ACETAMINOPHEN 500 MG TAB PO SCH ×2 (13:32→19:48)
[2021-07-27] MEDS ORDERED: HYDROmorphone INJ 0.5 MG/0.5 ML SYR IV STA (14:57)
[2021-07-27] MEDS ORDERED: PROMETHAZINE HCL 12.5 MG in SODIUM CHLORIDE 0.9% 50 ML IV PRN (14:57)
[2021-07-27] MEDS ORDERED: KETOROLAC TROMETHAMINE 15 MG/ML VIAL IV STA (15:00)
[2021-07-27] MEDS ORDERED: POLYETHYLENE (MIRALAX) 17 GM PACK PO PRN (15:37)
[2021-07-27] MEDS ORDERED: KETOROLAC TROMETHAMINE 15 MG/ML VIAL IV PRN (15:37)
[2021-07-27] MEDS: SODIUM CHLORIDE 0.9% 1000ML 1,000 ML IV SCH (15:57)
--- NOTE | 2021-07-27 16:24 | Pharmacy Report ---
Pharmacy Vanc AUC Short Note - Date of Service July 27, 2021 - Assessment & Plan Assessment 45 year old M receiving IV vancomycin and ceftriaxone for treatment of cellulitis. Blood culture pending. Renal function stable. Day # 1 of antimicrobial therapy. Plan Vancomycin * AUC/JENNA is the preferred PK/PD target for vancomycin * AUC guided dosing is effective and associated with decreased risk of nephrotoxicity compared to traditional trough targets * Trough level of 15.7 mcg/mL is predicted to achieve target AUC/JENNA of 400-600 mg/L.hr and may be associated with a 11% risk of nephrotoxicity * S/p vanc load of 2gm X 1. Begin dose of 1250 mg IV every 12 hours * Will obtain a trough level at steady state if vancomycin continued Pharmacy will continue to follow and will adjust dose/frequency as necessary. Thank you.
[2021-07-27] MEDS: ONDANSETRON INJ 2 MG/ML 2 ML VIAL IV PRN ×2 (17:17→20:45)
[2021-07-27] MEDS: ATORVASTATIN 20 MG TAB PO SCH (19:49)
[2021-07-27] MEDS: VANCOMYCIN HCL 1,250 MG in SODIUM CHLORIDE 0.9% 250 ML IV SCH (19:49)
[2021-07-27] MEDS: METOPROLOL SUCC 50MG EXT REL TAB PO SCH (19:49)
[2021-07-27] MEDS: traZODone HCL 50 MG TAB PO SCH (19:49)
[2021-07-27] MEDS: buprenorphine HCL 8 MG SUBL SL SCH (20:45)
[2021-07-27 20:54] LABS: Appearance Urine Clear (Clear); Bacteria Urine Automated Negative (Negative); Bilirubin Urine Negative (Negative); Blood Urine Negative (Negative); Color Urine Dark Yellow; Glucose Urine UA Negative (Negative); Ketones Urine 1+ (Negative); Leukocyte Esterase Urine Negative (Negative); Nitrite Urine Negative (Negative); Protein Urine 1+ (Negative); RBC Urine Automated 0-4 /hpf (0-4); Specific Gravity Urine 1.031 (1.000-1.030); Urobilinogen Urine Negative (Negative)
[2021-07-28] MEDS: SODIUM CHLORIDE 0.9% 1000ML 1,000 ML IV SCH (00:03)
[2021-07-28] MEDS: ACETAMINOPHEN 500 MG TAB PO SCH ×3 (05:21→20:45)
--- NOTE | 2021-07-28 06:41 | Electrocardiogram Report ---
Test Reason : Blood Pressure : / mmHG Vent. Rate : 064 BPM Atrial Rate : 064 BPM P-R Int : 128 ms QRS Dur : 096 ms QT Int : 392 ms P-R-T Axes : 023 030 012 degrees QTc Int : 404 ms Normal sinus rhythm Normal ECG No previous ECGs available Confirmed by Kuldeep Peters ([id number]) on 07/28/2021 6:41:22 AM Referred By: Confirmed By:Kuldeep Peters
[2021-07-28] MEDS: ONDANSETRON INJ 2 MG/ML 2 ML VIAL IV PRN ×2 (07:46→14:11)
[2021-07-28 08:01] LABS: Hematocrit (blood only) 36.2 % (42-52); Hemoglobin 12.3 g/dL (14.0-18.0); Mean Corpuscular Hemoglobin 31.3 pg (25-34); Mean Corpuscular Volume 92.1 fL (80-100); Mean Platelet Volume 10.6 fL (7.4-10.4); Platelet Count 182 K/uL (130-400); RDW Coefficient of Variation 13.5 % (11.5-14.5); RDW Standard Deviation 45.4 fL (36.4-46.3); Red Blood Count 3.93 M/uL (4.7-6.1); White Blood Count 27.17 K/uL (4.8-10.8)
[2021-07-28 08:29] LABS: BUN Creatinine Ratio 20.7 (10-20); Calcium 9.3 mg/dl (8.5-10.1); Creatinine Clr Calc Pharmacy 121.4 ml/min; Est GFR (African American) 108.8 ml/min; Est GFR (Non-African American) 93.9 ml/min; Potassium 3.9 mmol/L (3.5-5.1)
[2021-07-28 08:45] LABS: Basophils # (auto) 0.01 K/uL (0-0.2); Eosinophils # (auto) 0.04 K/uL (0-0.5); Eosinophils % (auto) 0.1 %; Immature Granulocytes % (auto) 0.4 %; Lymphocytes % (auto) 5.2 %; Monocytes # (auto) 1.63 K/uL (0.11-0.59); Neutrophils # (auto) 23.99 K/uL (1.4-6.5); Neutrophils % (auto) 88.3 %
[2021-07-28] MEDS: buprenorphine HCL 8 MG SUBL SL SCH ×2 (08:48→19:51)
[2021-07-28] MEDS: SERTRALINE HCL 100 MG TABLET PO SCH (08:48)
[2021-07-28] MEDS: VANCOMYCIN HCL 1,250 MG in SODIUM CHLORIDE 0.9% 250 ML IV SCH ×2 (08:49→19:50)
[2021-07-28] MEDS: METOPROLOL SUCC 50MG EXT REL TAB PO SCH ×2 (08:49→19:51)
[2021-07-28] MEDS: lisinopril 10 MG TAB PO SCH (08:49)
[2021-07-28] MEDS: ASPIRIN 81 MG ECTAB PO SCH (08:49)
[2021-07-28] MEDS ORDERED: cefTRIAXone SODIUM 2,000 MG in DEXTROSE 5% 50 ML IV SCH (09:00)
[2021-07-28] MEDS ORDERED: PIPERACILL/TAZOBAC CONSULT ACTIVE PRN (15:06)
[2021-07-28] MEDS ORDERED: PIPERACILLIN/TAZOBACTAM 3.375 GM in DEXTROSE 5% 100 ML IV STA (15:13)
--- NOTE | 2021-07-28 15:31 | Hospitalist Progress Note ---
Date of Service July 28, 2021 Assessment & Plan (1) Cellulitis of chest wall: Plan: 45 y/o M with PMH HTN, dyslipidemia, depression, H/O opioid abuse presented to ER 07/28 with complaint of right axilla and chest redness and pain. Per patient he noticed pimple-like area to right axilla 5 days ago which he squeezed. Reports no drainage but progressively developing surrounding erythema and edema since afterwards associated with significant pain/fever/headache. Patient also reports he had tick attached to the right chest and right breast couple of days ago. 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 Denies history of known MRSA in past. He has been mass for the following. #. Cellulitis: Tick bite versus traumatic Admitting WBC elevated, positive procalcitonin 1.07, negative Lyme. Positive MRSA. Admitting CT chest:Right axillary fat stranding and skin thickening likely representing acute infectious/inflammatory process such as cellulitis. Underlying reactive axillary lymph nodes noted. No drainable fluid collection is seen. Blood culture pending Erythema increasing, patient not improving, WBC uptrending Anaplasmosis pending Switch Rocephin to Zosyn, continue with vancomycin, add doxycycline for atypical coverage Daily labs, ID consult. Await blood culture. Pain management with an NSAID, avoid opiates given history of opiate abuse. #. HTN (hypertension): Continue lisinopril, metoprolol #. Dyslipidemia: Continue atorvastatin #. History of opioid abuse: Continue Suboxone #. Depression: Continue sertraline #. Tobacco use: Denies nicotine patch Smoking cessation recommended DVT Prophylaxis -SCDs Full Code Follows with Dr Valles for routine care Admission and Anticipated Discharge Date Admission Date: July 27, 2021 Subjective Patient was sitting up in bed, on room air, in mild to moderate distress, no new acute events overnight. Patient reports that the erythema in his right axilla and arm increasing. Patient reports pain in axilla with movement of right arm. Patient denies headache/dizziness/chills/sore throat/chest pain/palpitation/other review of symptoms. Physical Exam Physical Exam: GENERAL: Alert and oriented x3. NAD, on RA. Mild distress. HEENT: No pallor, no icterus. Pupils equal, round and reactive to light. Oral mucosa moist. NECK: No JVD, no neck masses. HEART: S1 and S2 heard. Regular rate and rhythm. No murmur, no gallop. RESPIRATORY SYSTEM: Normal AP diameter. No accessory muscle use. No wheezing, no crackles. ABDOMEN: Soft, bowel sounds present, nontender, no distention. CENTRAL NERVOUS SYSTEM: Alert and oriented x3. No facial droop. Speech is clear. Obeys simple commands. Moves extremities. EXTREMITIES: No edema, no erythema seen. Rt axilla and medial right arm erythematous and tender, no fluctuation appreciated. Rt axillary LAD noted. Results & Data Results & Data ([facility]) Vital Signs (Past 12 Hours) Vital Signs Temp Pulse Pulse Resp BP Pulse Ox 07/28/21 12:52 36.7 C 80 19 123/68 98 07/28/21 10:50 71 07/28/21 07:58 36.7 C 65 16 143/86 H 98 07/28/21 03:28 36.9 C 69 18 105/64 98
[2021-07-28] MEDS: DOXYCYCLINE HYCLATE 100 MG CAP PO SCH ×2 (16:47→22:59)
[2021-07-28] MEDS: PROMETHAZINE HCL 12.5 MG in SODIUM CHLORIDE 0.9% 50 ML IV PRN (19:50)
[2021-07-28] MEDS: IBUPROFEN 200 MG TAB PO SCH (19:51)
[2021-07-28] MEDS: ATORVASTATIN 20 MG TAB PO SCH (19:52)
[2021-07-28] MEDS: traZODone HCL 50 MG TAB PO SCH (19:52)
[2021-07-28] MEDS: PIPERACILLIN/TAZOBACTAM 3.375 GM in DEXTROSE 5% 100 ML IV SCH (21:51)
[2021-07-29] MEDS: PIPERACILLIN/TAZOBACTAM 3.375 GM in DEXTROSE 5% 100 ML IV SCH ×3 (05:49→22:33)
[2021-07-29] MEDS: ACETAMINOPHEN 500 MG TAB PO SCH ×3 (05:50→22:32)
[2021-07-29] MEDS ORDERED: VANCOMYCIN TROUGH ONE (07:30)
[2021-07-29 07:41] LABS: Hematocrit (blood only) 34.1 % (42-52); Hemoglobin 11.4 g/dL (14.0-18.0); Mean Corpuscular Hemoglobin 30.8 pg (25-34); Mean Corpuscular Hgb Conc 33.4 g/dL (32-36); Mean Corpuscular Volume 92.2 fL (80-100); Mean Platelet Volume 10.1 fL (7.4-10.4); Platelet Count 182 K/uL (130-400); RDW Coefficient of Variation 13.4 % (11.5-14.5); RDW Standard Deviation 45.2 fL (36.4-46.3); White Blood Count 19.59 K/uL (4.8-10.8)
[2021-07-29] MEDS: ONDANSETRON INJ 2 MG/ML 2 ML VIAL IV PRN (07:49)
[2021-07-29 08:14] LABS: Creatinine Clr Calc Pharmacy 143.7 ml/min; Est GFR (African American) 123.8 ml/min; Est GFR (Non-African American) 106.8 ml/min
[2021-07-29] MEDS: VANCOMYCIN HCL 1,250 MG in SODIUM CHLORIDE 0.9% 250 ML IV SCH (09:00)
[2021-07-29] MEDS: ASPIRIN 81 MG ECTAB PO SCH (09:02)
[2021-07-29] MEDS: DOXYCYCLINE HYCLATE 100 MG CAP PO SCH ×2 (09:02→22:32)
[2021-07-29] MEDS: CHOLECALCIFEROL 1,000 UNITS 25 MCG TAB PO SCH (09:02)
[2021-07-29] MEDS: SERTRALINE HCL 100 MG TABLET PO SCH (09:02)
[2021-07-29] MEDS: buprenorphine HCL 8 MG SUBL SL SCH ×2 (09:02→20:27)
[2021-07-29] MEDS: lisinopril 10 MG TAB PO SCH (09:02)
[2021-07-29] MEDS: IBUPROFEN 200 MG TAB PO SCH ×3 (09:03→20:29)
[2021-07-29] MEDS: METOPROLOL SUCC 50MG EXT REL TAB PO SCH ×2 (09:03→20:30)
--- NOTE | 2021-07-29 10:27 | CT Scan Report ---
CT OF THE CHEST WITHOUT IV CONTRAST CLINICAL HISTORY: Right axillary cellulitis expanding; r/o abscess/path COMPARISON STUDY: Chest CT July 27, 2021. CT DOSE: 918.62 mGy.cm TECHNIQUE: Axial images of the chest were obtained without IV contrast. Images were reviewed in the axial, sagittal, and coronal planes. IV contrast was not administered for this examination. Automat ed exposure control was utilized for the study. A dose lowering technique was utilized adhering to t he principles of ALARA. FINDINGS: No enlarged axillary, mediastinal or hilar lymph nodes are present. Size of the heart is w ithin normal limits. There is no pericardial effusion. No pneumothorax or pleural effusion is noted. There is no consolidation. Central airways are patent. There are no suspicious pulmonary nodules. Vis ualized portions of the upper abdomen are unremarkable on this unenhanced exam. Extensive stranding a nd associated fluid within the right axilla is noted. Extension into the right upper extremity and ri ght chest wall is noted. These findings have progressed since CT of July 27, 2021. There is no sof t tissue gas. Sensitivity for detection of abscess is diminished on this unenhanced exam but no fluid collection is identified. Prominent right axillary lymph nodes are likely reactive. No erosion of th e adjacent bones is identified to suggest osteomyelitis. Associated skin thickening is noted. IMPRESSION: 1. Increase in extent of of the extensive inflammatory process centered within the right axilla, exte nding into the right upper extremity and right chest wall since CT of July 27, 2021. Associated fl uid, stranding and skin thickening consistent with cellulitis. No fluid collection to suggest abscess . No soft tissue gas. 2. Prominent right axillary lymph nodes which are likely reactive. ACT 112: Negative or not required by law. Electronically signed by: Odilon Light M.D. 07/29/2021 10:26 AM
--- NOTE | 2021-07-29 11:29 | Pharmacy Report ---
Pharmacy Vanc AUC Short Note - Date of Service July 29, 2021 - Assessment & Plan Assessment 45 year old M receiving IV Vancomycin and Zosyn for treatment of cellulitis. Day # 3 of antimicrobial therapy. * Currently on Vancomycin 1250mg IV q12 Plan Vancomycin * AUC/JENNA is the preferred PK/PD target for vancomycin * AUC guided dosing is effective and associated with decreased risk of nephrotoxicity compared to traditional trough targets * Trough level of 7.4 mcg/mL is subtherapeutic and predicted to not achieve target AUC/JENNA of 400-600 mg/L.hr * Will shorten dosing interval to target a higher trough/AUC. New regimen is estimated to achieve target AUC 400-600 with 11% risk for toxicity * Change to 1250 mg IV every 8 hours * Trough level ordered for: 07/30/21 @ 1330 (prior to 4th dose and therefore should be reflective of steady state) Pharmacy will continue to follow and will adjust dose/frequency as necessary. Thank you.
[2021-07-29] MEDS ORDERED: VANCOMYCIN HCL 1,250 MG in SODIUM CHLORIDE 0.9% 250 ML IV SCH (14:00)
--- NOTE | 2021-07-29 17:03 | Hospitalist Progress Note ---
Date of Service July 29, 2021 Assessment & Plan (1) Cellulitis of chest wall: Plan: 45 y/o M with PMH HTN, dyslipidemia, depression, H/O opioid abuse presented to ER 07/28 with complaint of right axilla and chest redness and pain. Per patient he noticed pimple-like area to right axilla 5 days ago which he squeezed. Reports no drainage but progressively developing surrounding erythema and edema since afterwards associated with significant pain/fever/headache. Patient also reports he had tick attached to the right chest and right breast couple of days ago. 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 Denies history of known MRSA in past. He has been mass for the following. #. Cellulitis: Tick bite versus traumatic Admitting WBC elevated, positive procalcitonin 1.07, negative Lyme. Positive MRSA. Admitting CT chest:Right axillary fat stranding and skin thickening likely representing acute infectious/inflammatory process such as cellulitis. Underlying reactive axillary lymph nodes noted. No drainable fluid collection is seen. Blood culture pending Erythema stable but more faint, patient afebrile, WBC downtrending Anaplasmosis pending Continue Zosyn 07/28 and doxycycline 07/28. Daily labs, ID consult. Await blood culture. Pain management with an NSAID, avoid opiates given history of opiate abuse. Will add PPI for GI prophylaxis. #. HTN (hypertension): Continue lisinopril, metoprolol #. Dyslipidemia: Continue atorvastatin #. History of opioid abuse: Continue Suboxone #. Depression: Continue sertraline #. Tobacco use: Denies nicotine patch Smoking cessation recommended DVT Prophylaxis -SCDs Full Code Follows with Dr Valles for routine care Admission and Anticipated Discharge Date Admission Date: July 29, 2021 Subjective Patient was sitting up in bed, on room air, NAD, no new acute events overnight. Patient reports significant improvement in his right axilla pain. Upon bedside exam, his erythema seems to be stable but more faint today, looks like we are moving in a positive direction. Patient still reports pain in axilla with movement of right arm. Patient denies headache/dizziness/chills/sore throat/chest pain/palpitation/other review of symptoms. Physical Exam Physical Exam: GENERAL: Alert and oriented x3. NAD, on RA. NAD HEENT: No pallor, no icterus. Pupils equal, round and reactive to light. Oral mucosa moist. NECK: No JVD, no neck masses. HEART: S1 and S2 heard. Regular rate and rhythm. No murmur, no gallop. RESPIRATORY SYSTEM: Normal AP diameter. No accessory muscle use. No wheezing, no crackles. ABDOMEN: Soft, bowel sounds present, nontender, no distention. CENTRAL NERVOUS SYSTEM: Alert and oriented x3. No facial droop. Speech is clear. Obeys simple commands. Moves extremities. EXTREMITIES: No edema, no erythema seen elsewhere. Rt axilla and medial right arm erythematous and non-tender to palpation, no fluctuation appreciated. Rt axillary LAD noted-increasing size. Erythema today seems more faint likely improving. Results & Data Results & Data ([facility]) Vital Signs (Past 12 Hours) Vital Signs Temp Pulse Pulse Resp BP Pulse Ox 07/29/21 16:00 36.6 C 69 20 128/79 96 07/29/21 14:58 58 L 07/29/21 12:33 36.3 C L 67 20 155/75 H 97 07/29/21 10:33 61 07/29/21 07:00 36.3 C L 67 18 155/75 H 97
[2021-07-29] MEDS: ATORVASTATIN 20 MG TAB PO SCH (20:27)
[2021-07-29] MEDS: traZODone HCL 50 MG TAB PO SCH (20:29)
[2021-07-29] MEDS: PROMETHAZINE HCL 12.5 MG in SODIUM CHLORIDE 0.9% 50 ML IV PRN (20:38)
[2021-07-30] MEDS: ACETAMINOPHEN 500 MG TAB PO SCH ×3 (05:21→21:09)
[2021-07-30] MEDS: PIPERACILLIN/TAZOBACTAM 3.375 GM in DEXTROSE 5% 100 ML IV SCH ×3 (05:21→21:15)
[2021-07-30 07:31] LABS: Hematocrit (blood only) 33.6 % (42-52); Hemoglobin 11.4 g/dL (14.0-18.0); Mean Corpuscular Hemoglobin 30.9 pg (25-34); Mean Corpuscular Hgb Conc 33.9 g/dL (32-36); Mean Corpuscular Volume 91.1 fL (80-100); Mean Platelet Volume 10.2 fL (7.4-10.4); Platelet Count 191 K/uL (130-400); RDW Coefficient of Variation 13.3 % (11.5-14.5); RDW Standard Deviation 44.4 fL (36.4-46.3); Red Blood Count 3.69 M/uL (4.7-6.1)
[2021-07-30 07:57] LABS: Creatinine Clr Calc Pharmacy 136.8 ml/min; Est GFR (African American) 121.4 ml/min; Est GFR (Non-African American) 104.7 ml/min
[2021-07-30] MEDS: lisinopril 10 MG TAB PO SCH (09:10)
[2021-07-30] MEDS: METOPROLOL SUCC 50MG EXT REL TAB PO SCH ×2 (09:10→21:04)
[2021-07-30] MEDS: CHOLECALCIFEROL 1,000 UNITS 25 MCG TAB PO SCH (09:10)
[2021-07-30] MEDS: ASPIRIN 81 MG ECTAB PO SCH (09:10)
[2021-07-30] MEDS: SERTRALINE HCL 100 MG TABLET PO SCH (09:10)
[2021-07-30] MEDS: IBUPROFEN 200 MG TAB PO SCH ×3 (09:10→21:03)
[2021-07-30] MEDS: PANTOprazole 40 MG TAB PO SCH (09:10)
[2021-07-30] MEDS: buprenorphine HCL 8 MG SUBL SL SCH ×2 (09:16→21:11)
[2021-07-30] MEDS: DOXYCYCLINE HYCLATE 100 MG CAP PO SCH ×2 (09:39→21:09)
[2021-07-30] MEDS: HEPARIN SOD 5,000 UNIT/0.5 ML VIAL SQ SCH ×2 (10:01→21:02)
[2021-07-30] MEDS ORDERED: VANCOMYCIN TROUGH ONE (13:30)
--- NOTE | 2021-07-30 13:47 | Hospitalist Progress Note ---
Date of Service July 30, 2021 Assessment & Plan (1) Cellulitis of chest wall: Plan: 45 y/o M with PMH HTN, dyslipidemia, depression, H/O opioid abuse presented to ER 07/28 with complaint of right axilla and chest redness and pain. Per patient he noticed pimple-like area to right axilla 5 days ago which he squeezed. Reports no drainage but progressively developing surrounding erythema and edema since afterwards associated with significant pain/fever/headache. Patient also reports he had tick attached to the right chest and right breast couple of days ago. 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 Denies history of known MRSA in past. He has been mass for the following. #. Cellulitis: Tick bite versus traumatic Admitting WBC elevated, positive procalcitonin 1.07, negative Lyme. Positive MRSA. Admitting CT chest:Right axillary fat stranding and skin thickening likely representing acute infectious/inflammatory process such as cellulitis. Underlying reactive axillary lymph nodes noted. No drainable fluid collection is seen. Admitting Blood culture : NG after 48 hours Erythema somewhat improving, patient afebrile, WBC downtrending to near normal. Anaplasmosis pending Continue Zosyn 07/28 and doxycycline 07/28. Daily labs, ID consult. Await blood culture final results and anaplasma results. Pain management with an NSAID, avoid opiates given history of opiate abuse. Will add PPI for GI prophylaxis. #. HTN (hypertension): Continue lisinopril, metoprolol #. Dyslipidemia: Continue atorvastatin #. History of opioid abuse: Continue Suboxone #. Depression: Continue sertraline #. Tobacco use: Denies nicotine patch Smoking cessation recommended DVT Prophylaxis -SCDs Full Code Follows with Dr Valles for routine care Disposition: Pending ID eval, will continue care in med/surg. Admission and Anticipated Discharge Date Admission Date: July 29, 2021 Subjective Patient was lying in bed, on room air, NAD, no new acute events overnight. Patient reports continued significant improvement in his right axilla pain. Upon bedside exam, his erythema seems to be getting somewhat better,. Patient still reports some pain in axilla with movement of right arm. Patient denies headache/dizziness/chills/sore throat/chest pain/palpitation/other review of symptoms. Patient is eating not much per himself. Physical Exam Physical Exam: GENERAL: Alert and oriented x3. NAD, on RA. NAD HEENT: No pallor, no icterus. Pupils equal, round and reactive to light. Oral mucosa moist. NECK: No JVD, no neck masses. HEART: S1 and S2 heard. Regular rate and rhythm. No murmur, no gallop. RESPIRATORY SYSTEM: Normal AP diameter. No accessory muscle use. No wheezing, no crackles. ABDOMEN: Soft, bowel sounds present, nontender, no distention. CENTRAL NERVOUS SYSTEM: Alert and oriented x3. No facial droop. Speech is clear. Obeys simple commands. Moves extremities. EXTREMITIES: No edema, no erythema seen elsewhere. Rt axilla and medial right arm erythematous and non-tender to palpation, no fluctuation appreciated. Rt axillary LAD noted-stable size. Erythema seems faint and is clearing from the center of axilla. Results & Data Results & Data ([facility]) Vital Signs (Past 12 Hours) Vital Signs Temp Pulse Pulse Resp BP Pulse Ox 07/30/21 11:38 36.8 C 58 L 18 137/72 96 07/30/21 08:18 36.8 C 59 L 19 136/86 99 07/30/21 07:48 56 L
[2021-07-30] MEDS: ATORVASTATIN 20 MG TAB PO SCH (20:59)
[2021-07-30] MEDS: traMADol HCL 50 MG TABLET PO PRN (20:59)
[2021-07-30] MEDS: traZODone HCL 50 MG TAB PO SCH (21:05)
[2021-07-30] MEDS ORDERED: KETOROLAC TROMETHAMINE 15 MG/ML VIAL IV ONE (21:29)
--- NOTE | 2021-07-30 21:30 | Communication Note ---
Date of Service: July 30, 2021 9:26 PM Notified by RN of spreading area of redness from chest going to the forearm. AP Progressive chest wall cellulitis History of MRSA as per records Change doxycycline to Daptomycin. Continue Zosyn.
[2021-07-30] MEDS: DAPTOmycin 300 MG in SYRINGE 0 ML IV SCH (23:45)
[2021-07-31] MEDS: ACETAMINOPHEN 500 MG TAB PO SCH ×3 (05:47→20:53)
[2021-07-31] MEDS: PIPERACILLIN/TAZOBACTAM 3.375 GM in DEXTROSE 5% 100 ML IV SCH ×3 (05:47→20:54)
[2021-07-31 06:32] LABS: Hematocrit (blood only) 34.1 % (42-52); Hemoglobin 11.3 g/dL (14.0-18.0); Mean Corpuscular Hemoglobin 30.9 pg (25-34); Mean Corpuscular Hgb Conc 33.1 g/dL (32-36); Mean Corpuscular Volume 93.2 fL (80-100); Mean Platelet Volume 10.2 fL (7.4-10.4); Platelet Count 214 K/uL (130-400); RDW Coefficient of Variation 13.4 % (11.5-14.5); RDW Standard Deviation 45.3 fL (36.4-46.3); Red Blood Count 3.66 M/uL (4.7-6.1); White Blood Count 10.87 K/uL (4.8-10.8)
[2021-07-31 07:14] LABS: Creatinine Clr Calc Pharmacy 125.2 ml/min; Est GFR (Non-African American) 97.5 ml/min
[2021-07-31] MEDS: CHOLECALCIFEROL 1,000 UNITS 25 MCG TAB PO SCH (08:46)
[2021-07-31] MEDS: ASPIRIN 81 MG ECTAB PO SCH (08:46)
[2021-07-31] MEDS: HEPARIN SOD 5,000 UNIT/0.5 ML VIAL SQ SCH ×2 (08:47→20:48)
[2021-07-31] MEDS: IBUPROFEN 200 MG TAB PO SCH ×2 (08:48→13:34)
[2021-07-31] MEDS: lisinopril 10 MG TAB PO SCH (08:48)
[2021-07-31] MEDS: SERTRALINE HCL 100 MG TABLET PO SCH (08:49)
[2021-07-31] MEDS: PANTOprazole 40 MG TAB PO SCH (08:49)
[2021-07-31] MEDS: METOPROLOL SUCC 50MG EXT REL TAB PO SCH ×2 (08:49→20:50)
[2021-07-31] MEDS: buprenorphine HCL 8 MG SUBL SL SCH ×2 (08:56→20:54)
--- NOTE | 2021-07-31 13:13 | Hospitalist Progress Note ---
Date of Service July 31, 2021 Assessment & Plan (1) Cellulitis of chest wall: Plan: 45 y/o M with PMH HTN, dyslipidemia, depression, H/O opioid abuse on Subutex who presented to ER 07/28 with complaint of right axilla and chest redness and pain. Per patient he noticed pimple-like area to right axilla 5 days ago which he squeezed. Reports no drainage but progressively developing surrounding erythema and edema since afterwards associated with significant pain/fever/headache. Patient also reports he had tick attached to the right chest and right breast couple of days ago. 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 Denies history of known MRSA in past. Right axilla cellulitis: Tick bite versus traumatic WBC 25K on admission -> 10.8K today Procalcitonin 1.07 on admission, negative Lyme, positive MRSA, anaplasmosis pending Admitting CT chest:Right axillary fat stranding and skin thickening likely representing acute infectious/inflammatory process such as cellulitis. Underlying reactive axillary lymph nodes noted. No drainable fluid collection is seen. Blood cultures 07/27 NGTD Rocephin 07/27, Vanco 07/27-7, Zosyn 07/28-current, doxycycline 07/28-8, Dapto added 07/30 for concerns of worsening erythema ID recommends discontinuing Zosyn and discharging on p.o. Bactrim and doxycycline to complete a 10 to 14-day course Given increased pain, will check ultrasound for possible abscess development. If no abscess, will transition to p.o. Bactrim and doxycycline per ID recommendations. Pain management with an NSAID, avoid opiates given history of opiate abuse. On PPI for GI prophylaxis. HTN (hypertension): BP controlled, continue lisinopril, metoprolol Dyslipidemia: Continue atorvastatin History of opioid abuse: Continue Suboxone Depression: Continue sertraline Tobacco use: Denies nicotine patch Smoking cessation recommended DVT Prophylaxis: SCDs, ambulation Full Code Follows with Dr Valles for routine care Disposition: Pending US report, likely transition to p.o. antibiotics today. Discharge within the next 1 to 2 days. 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 We will continue with IV antibiotics for now, after I&D switch to oral antibiotics per ID recommendations. Patient n.p.o. midnight for I&D tomorrow by surgery. Upon examination GENERAL: Alert and oriented x3. NAD, on RA. NAD HEENT: No pallor, no icterus. Pupils equal, round and reactive to light. Oral mucosa moist. NECK: No JVD, no neck masses. HEART: S1 and S2 heard. Regular rate and rhythm. No murmur, no gallop. RESPIRATORY SYSTEM: Normal AP diameter. No accessory muscle use. No wheezing, no crackles. ABDOMEN: Soft, bowel sounds present, nontender, no distention. CENTRAL NERVOUS SYSTEM: Alert and oriented x3. No facial droop. Speech is clear. Obeys simple commands. Moves extremities. EXTREMITIES: No edema, no erythema seen elsewhere. Rt axilla and medial right arm erythematous and non-tender to palpation, fluctuation appreciated. Rt axillary LAD noted-slightly increased in size. Erythema seems faint and is clearing from the center of axilla. I have seen and examined the patient and have discussed the case with the provider above. I agree with the assessment and plan as stated. Subjective Patient seen and examined. Follow-up for right axilla cellulitis. Ambulating in the room independently. Reports increased pain and swelling to right axilla. No chest pain or shortness of breath. Denies abdominal pain or nausea. Patient reports concerns over currently not having health insurance and recently quitting his job. Physical Exam Constitutional: no acute distress Ambulating in room independently Respiratory: normal respiratory effort, lungs clear to auscultation Cardiovascular: Rate/Rhythm: regular rate and regular rhythm Vessels: normal peripheral pulses Extremities: no edema Gastrointestinal (Abdomen): Percussion/Palpation: abdomen soft; abdomen nontender Skin: no rashes, warm and dry Indurated areas noted to right axilla and upper right medial arm that are tender to palpation, no fluctuation or drainage noted, surrounding erythema noted however improved from previously outlined area Neurologic: moves all extremities and awake; no focal motor deficits Psychiatric: Orientation: alert and oriented x 3 Affect: + anxious affect Results & Data Results & Data ([facility]) Vital Signs (Past 12 Hours) Vital Signs Temp Pulse Resp BP Pulse Ox 07/31/21 07:39 36.6 C 56 L 16 117/66 98 07/31/21 02:29 36.4 C L 52 L 16 115/75 100 Laboratory Results Short CBC 07/31/21 Range/Units 05:46 WBC 10.87 H (4.8-10.8) K/uL Hgb 11.3 L (14.0-18.0) g/dL Hct 34.1 L (42-52) % Plt Count 214 (130-400) K/uL BMP 07/31/21 05:46 Creatinine 0.94
--- NOTE | 2021-07-31 13:54 | Ultrasound Report ---
RIGHT AXILLARY ULTRASOUND CLINICAL HISTORY: right axilla, eval for abscess COMPARISON STUDY: Chest CT July 29, 2021. TECHNIQUE: Sonography of the right axilla was performed. FINDINGS: Prominent right axillary lymph nodes are likely reactive. Note is made of a complex right a xillary elongated fluid collection which measures 10 x 6.7 x 2.2 cm. This contains hypoechoic materia l. There is no color flow within this collection. In addition, there is an additional 7.6 x 2.2 x 6.3 cm elongated fluid collection adjacent to the right shoulder. These collections were not clearly chayito dent on CT of July 29, 2021. IMPRESSION: 1. Interval development of an elongated 10 x 6.7 x 2.2 cm complex right axillary fluid collection and an additional complex 7.6 x 2.2 x 6.3 cm fluid collection adjacent to the right shoulder. These at l east represent phlegmon and are suspicious for developing abscesses. 2. Prominent right axillary lymph nodes which are likely reactive. ACT 112: Negative or not required by law. Electronically signed by: Odilon Light M.D. 07/31/2021 1:52 PM
--- NOTE | 2021-07-31 15:17 | Surgery Consultation ---
Date of Consultation July 31, 2021 Assessment & Plan (1) Axillary abscess: This is a 45y M who presented to the [facility] ED on 07/27/21 with redness, swelling, and pain of his R upper extremity and armpit area. The patient did have a tick bite noted on 07/15/21 and since then the area of concern has progressively worsened. He had extensive cellulitis down his R forearm and extending onto his chest that has improved since admission being on IV abx. Unfortunately the swelling has worsened prompting repeat imaging with an US today showing development of a 10 x 6.7 x 2.2 cm complex right axillary fluid collection and an additional complex 7.6 x 2.2 x 6.3 cm fluid collection adjacent to the right shoulder, suspicious for abscesses. Patient has eaten today, therefore we will make him NPO at midnight and schedule him for the OR for incision and drainage of abscess x2 tomorrow in the AM. Continue IV abx- ID has been consulted. Dr. Murillo-Liudmila examined the patient in his room-I also reviewed his ultrasound and CT scan-he apparently had a tick bite approximately 2 weeks ago which was likely drained by the right axilla and he developed an infection. He now has a axillary abscess and also anterior right shoulder abscess with surrounding cellulitis. It does appear some of the cellulitis has resolved since being on IV antibiotics. Patient did eat a late lunch-we have put him on for the OR in the morning/early for incision and drainage of these 2 areas. The axillary abscess may require wound VAC but this would be placed postoperatively on the nursing floor We will also be sure to culture the abscesses (2) Cellulitis of chest wall: History of Present Illness Attending Physician: Brian Espinal MD History of Present Illness This is a 45y M who presented to the [facility] ED on 07/27/21 with redness, swelling, and pain of his R upper extremity and armpit area. He reports that he was bitten by a tick around the time of 07/15/21 and he was unable to completely remove it. A few days after this incident he noticed swelling under his R axilla associated with redness and pain. He thought he had an ingrown hair and attempted to squeeze it multiple times without any success of relieving it. The swelling progressed in addition to increased redness and pain prompting him to come be evaluated. He endorsed + n/v, fever/chills, and shortness of breath related to t he pain. Initially his imaging revealed evidence of cellulitis and inflammation without drainable abscess formation. Since being admitted and on IV abx his erythema has improved, but the swelling has continued to worsen prompting repeat imaging today. US revealed interval development of an elongated 10 x 6.7 x 2.2 cm complex right axillary fluid collection and an additional complex 7.6 x 2.2 x 6.3 cm fluid collection adjacent to the right shoulder, suspicious for developing abscesses. The patient denies any drainage from these areas. The patient denies history of having these in the past. Allergies Allergy/AdvReac Type Severity Reaction Status Date / Time No Known Allergies Allergy Verified 07/27/21 10:35 Home Medications Medication Instructions Recorded Confirmed Type aspirin 81 mg tablet,delayed 81 mg PO DAILY 07/27/21 07/27/21 History release atorvastatin 20 mg tablet (Lipitor) 20 mg PO HS 07/27/21 07/27/21 History buprenorphine HCl 8 mg sublingual 8 mg SUBLINGUAL BID 07/27/21 07/27/21 History tablet celecoxib 200 mg capsule (Celebrex) 200 mg PO QDD 07/27/21 07/27/21 History cholecalciferol (vitamin D3) 125 5,000 unit PO QAM 07/27/21 07/27/21 History mcg (5,000 unit) capsule (Dialyvite Vitamin D) lisinopril 10 mg tablet (Zestril) 10 mg PO QAM 07/27/21 07/27/21 History metoprolol succinate 50 mg 50 mg PO BID 07/27/21 07/27/21 History tablet,extended release 24 hr (Toprol XL) sertraline 100 mg tablet (Zoloft) 100 mg PO QAM 07/27/21 07/27/21 History trazodone 50 mg tablet 50 mg PO HS 07/27/21 07/27/21 History Patient History Medical History Depression Dyslipidemia History of opioid abuse HTN (hypertension) Tobacco use Surgical History History of surgical removal of pilonidal cyst Family History Father Diabetes Mother Coronary heart disease Social History Smoking Status: Current every day smoker Tobacco Type: Cigarettes Cigarettes Per Day: 10; Second Hand Exposure: Yes; Do You Dip or Chew Tobacco: No; Tobacco Cessation Education Requested by Patient: No Hx Alcohol Use: Yes Alcohol type: beer Hx Substance Use: Yes Prescribed Medications: Opiates Non-Prescribed Medications: Marijuana Last Used Substance Other:: marijuana use daily. substance abuse sober for years. Preferred Language: Nigerien Communication Ability: Effective Print Designer Required: Yes and No Beliefs That Will Affect Care: None marital status: / Current Living Situation: Parent Current Living Situation Comment: lives @ home with mother and daughter. How many Children do You have: 1 Other Information That Helps Us Care for You: No Feels Safe at Home: Yes Safety Concerns: Feels Safe At This Time Assistive Devices: None Review of Systems Constitutional: + fever and + chills Respiratory: shortness of breath related to pain Gastrointestinal: + nausea and + vomiting Musculoskeletal: swelling, redness, and lump under R underarm Physical Exam Physical Exam: awake/alert, no acute distress Constitutional: WD/WN, vitals as above Respiratory: normal respiratory effort Musculoskeletal: R axillary swelling and area of fluctuance of the medial R upper arm associated with erythema (marked from forearm to chest which has improved). Two areas of concern are tender to palpation no drainge Results & Data ([facility]) Vital Signs (Past 12 Hours) Vital Signs Temp Pulse Resp BP Pulse Ox 07/31/21 07:39 36.6 C 56 L 16 117/66 98 RIGHT AXILLARY ULTRASOUND CLINICAL HISTORY: right axilla, eval for abscess COMPARISON STUDY: Chest CT July 29, 2021. TECHNIQUE: Sonography of the right axilla was performed. FINDINGS: Prominent right axillary lymph nodes are likely reactive. Note is made of a complex right axillary elongated fluid collection which measures 10 x 6.7 x 2.2 cm. This contains hypoechoic material. There is no color flow within this collection. In addition, there is an additional 7.6 x 2.2 x 6.3 cm elongated fluid collection adjacent to the right shoulder. These collections were not clearly evident on CT of July 29, 2021. IMPRESSION: 1. Interval development of an elongated 10 x 6.7 x 2.2 cm complex right axillary fluid collection and an additional complex 7.6 x 2.2 x 6.3 cm fluid collection adjacent to the right shoulder. These at least represent phlegmon and are suspicious for developing abscesses. 2. Prominent right axillary lymph nodes which are likely reactive. ACT 112: Negative or not required by law. Electronically signed by: Odilon Light M.D. 07/31/2021 1:52 PM PG Care Time/CCT Total # of Minutes Spent Total Time Spent with Patient: Total time spent is greater than 50% in coordination of care (as documented) at patient's floor/unit and/or counseling patient: Coding Level of Care Code 55127 Inpt Consult Level 3 Diagnoses Axillary abscess L02.419 Cellulitis of chest wall L03.313
--- NOTE | 2021-07-31 16:11 | Anesthesiology Consultation ---
Date of Service July 31, 2021 Assessment & Plan Chart Review Chart Review: Acceptable Risk for Surgery and Patient NOT seen in Pre Admission Testing History Surgery Operation Date: 08/01/21 07:30 Proposed Procedures p Incision and Drainage, Right Axillary Shoulder Abscess - Cody Murillo MD, FACS Height/Weight Height: 6 ft Weight: 106.5 kg Allergies Allergy/AdvReac Type Severity Reaction Status Date / Time No Known Allergies Allergy Verified 07/27/21 10:35 Medications Home Medications Medication Instructions Recorded Confirmed Last Taken aspirin 81 mg tablet,delayed 81 mg PO DAILY 07/27/21 07/27/21 07/27/21 release atorvastatin 20 mg tablet (Lipitor) 20 mg PO HS 07/27/21 07/27/21 07/26/21 buprenorphine HCl 8 mg sublingual 8 mg SUBLINGUAL BID 07/27/21 07/27/21 Unknown tablet celecoxib 200 mg capsule (Celebrex) 200 mg PO QDD 07/27/21 07/27/21 07/26/21 cholecalciferol (vitamin D3) 125 5,000 unit PO QAM 07/27/21 07/27/21 07/27/21 mcg (5,000 unit) capsule (Dialyvite Vitamin D) lisinopril 10 mg tablet (Zestril) 10 mg PO QAM 07/27/21 07/27/21 07/27/21 metoprolol succinate 50 mg 50 mg PO BID 07/27/21 07/27/21 07/27/21 tablet,extended release 24 hr (Toprol XL) sertraline 100 mg tablet (Zoloft) 100 mg PO QAM 07/27/21 07/27/21 07/27/21 trazodone 50 mg tablet 50 mg PO HS 07/27/21 07/27/21 07/26/21 Active Medications Generic Name Dose Route Start Last Admin Trade Name Freq PRN Reason Stop Dose Admin Acetaminophen 1,000 mg 07/27/21 13:15 07/31/21 12:52 Acetaminophen 500 Mg Tab PO 08/26/21 13:14 1,000 mg Q8H DAVID Administration Aspirin 81 mg 07/28/21 09:00 07/31/21 08:46 Aspirin 81 Mg Ectab PO 08/27/21 08:59 81 mg DAILY DAVID Administration Atorvastatin Calcium 20 mg 07/27/21 21:00 07/30/21 20:59 Atorvastatin 20 Mg Tab PO 08/26/21 20:59 20 mg HS DAVID Administration Buprenorphine HCl 8 mg 07/27/21 21:00 07/31/21 08:56 Buprenorphine Hcl 8 Mg Subl SL 08/26/21 20:59 8 mg BID DAVID Administration Heparin Sodium (Porcine) 5,000 units 07/30/21 09:30 07/31/21 08:47 Heparin Sod 5,000 Unit/0.5 Ml Vial SQ 08/29/21 09:29 5,000 units Q12 DAVID Administration Piperacillin Sod/Tazobactam 115 mls @ 28.75 mls/hr 07/28/21 22:00 07/31/21 13:34 Sod 3.375 gm/ Dextrose IV 08/04/21 21:59 28.8 mls/hr Q8H DAVID Administration Protocol Promethazine HCl 12.5 mg/ 50.5 mls @ 202 mls/hr 07/28/21 19:21 07/29/21 20:55 Sodium Chloride IV 08/27/21 19:20 Infused Q6H PRN Infusion Nausea And Vomiting Daptomycin 300 mg/ Syringe 6 mls @ 0.01 mls/min 07/30/21 22:00 07/30/21 23:45 IV 08/06/21 21:59 0.01 mls/min Q24H DAVID Administration Protocol Lisinopril 10 mg 07/28/21 09:00 07/31/21 08:48 Lisinopril 10 Mg Tab PO 08/27/21 08:59 10 mg QAM DAVID Administration Metoprolol Succinate 50 mg 07/27/21 21:00 07/31/21 08:49 Metoprolol Succ 50mg Ext Rel Tab PO 08/26/21 20:59 50 mg BID DAVID Administration Ondansetron HCl 4 mg 07/27/21 15:37 07/29/21 07:49 Ondansetron Inj 2 Mg/Ml 2 Ml Vial IV 08/26/21 15:36 4 mg Q6H PRN Administration Nausea Pantoprazole Sodium 40 mg 07/30/21 09:00 07/31/21 08:49 Pantoprazole 40 Mg Tab PO 08/29/21 08:59 40 mg QAM DAVID Administration Sertraline HCl 100 mg 07/28/21 09:00 07/31/21 08:49 Sertraline Hcl 100 Mg Tablet PO 08/27/21 08:59 100 mg QAM DAVID Administration Tramadol HCl 50 mg 07/27/21 19:37 07/30/21 20:59 Tramadol Hcl 50 Mg Tablet PO 08/26/21 19:44 50 mg Q6H PRN Administration Severe Pain Trazodone HCl 50 mg 07/27/21 21:00 07/30/21 21:05 Trazodone Hcl 50 Mg Tab PO 08/26/21 20:59 50 mg HS DAVID Administration Vitamin D 5,000 units 07/29/21 09:00 07/31/21 08:46 Cholecalciferol 1,000 Units 25 Mcg Tab PO 08/28/21 08:59 5,000 units DAILY DAVID Administration Past Medical History Medical History Depression Dyslipidemia History of opioid abuse HTN (hypertension) Tobacco use Past Family History Family History Father Diabetes Mother Coronary heart disease Past Surgical History Surgical History History of surgical removal of pilonidal cyst Social History Smoking Status: Current every day smoker tobacco type: cigarettes Smoking cigarettes per day: 10 Do You Dip or Chew Tobacco: No Hx Alcohol Use: Yes Alcohol type: beer alcohol intake frequency: holidays/special occasions only Hx Substance Use: Yes substance use type: former substance user and marijuana Last Used Substance Other:: marijuana use daily. substance abuse sober for years. Physical Exam Vital Signs Last Vital Signs Temp 36.9 C 07/31/21 15:04 Pulse 57 L 07/31/21 15:04 Resp 16 07/31/21 15:04 BP 150/78 H 07/31/21 15:04 Pulse Ox 99 07/31/21 15:04 Testing Laboratory Results 07/31/21 05:46 07/31/21 05:46 Urine Color Dark Yellow 07/27/21 Unknown Urine Appearance Clear (Clear) 07/27/21 Unknown Urine pH 7.0 (4.5-7.5) 07/27/21 Unknown Ur Specific [place] 1.031 (1.000-1.030) H 07/27/21 Unknown Urine Protein 1+ (Negative) H 07/27/21 Unknown Urine Glucose (UA) Negative (Negative) 07/27/21 Unknown Urine Ketones 1+ (Negative) H 07/27/21 Unknown Urine Nitrite Negative (Negative) 07/27/21 Unknown Ur Leukocyte Esterase Negative (Negative) 07/27/21 Unknown Urine WBC (Auto) 1-5 /hpf (0-5) 07/27/21 Unknown Urine RBC (Auto) 0-4 /hpf (0-4) 07/27/21 Unknown U Hyaline Cast (Auto) 5-10 /lpf (0-5) H 07/27/21 Unknown U Epithel Cells (Auto) 10-20 /lpf (0-5) H 07/27/21 Unknown Urine Bacteria (Auto) Negative (Negative) 07/27/21 Unknown 07/27/21 11:45 Aerobic Blood Culture - Preliminary Blood No growth in Aerobic bottle after 48 hours. Anaerobic Blood Culture - Preliminary No growth in Anaerobic bottle after 48 hours.
[2021-07-31] MEDS: DAPTOmycin 300 MG in SYRINGE 0 ML IV SCH (20:49)
[2021-07-31] MEDS: traZODone HCL 50 MG TAB PO SCH (20:53)
[2021-08-01] MEDS: PIPERACILLIN/TAZOBACTAM 3.375 GM in DEXTROSE 5% 100 ML IV SCH ×3 (05:28→20:55)
[2021-08-01] MEDS: ACETAMINOPHEN 500 MG TAB PO SCH ×3 (05:28→20:50)
[2021-08-01] MEDS ORDERED: LIDOCAINE 2% 2 ML VIAL/AMP(20MG/ML) INFIL ONE (06:38)
[2021-08-01] MEDS ORDERED: MIDAZOLAM HCL 1 MG/ML 2ML VIAL ONE (06:38)
[2021-08-01] MEDS ORDERED: PROPOFOL IV EMULSION 10 MG/ML 20 ML VIAL IV ONE (06:38)
[2021-08-01] MEDS ORDERED: fentaNYL citrate 100 MCG/2 ML VIAL ONE (06:38)
[2021-08-01 06:39] LABS: Hematocrit (blood only) 32.8 % (42-52); Mean Corpuscular Hemoglobin 30.6 pg (25-34); Mean Corpuscular Hgb Conc 33.5 g/dL (32-36); Mean Corpuscular Volume 91.1 fL (80-100); Mean Platelet Volume 10.3 fL (7.4-10.4); Platelet Count 227 K/uL (130-400); RDW Coefficient of Variation 13.2 % (11.5-14.5); RDW Standard Deviation 44.4 fL (36.4-46.3); White Blood Count 12.16 K/uL (4.8-10.8)
[2021-08-01] MEDS ORDERED: PHENYLEPHRINE 100MCG/ML 5ML SYR IV PRN (06:59)
[2021-08-01] MEDS ORDERED: ONDANSETRON INJ 2 MG/ML 2 ML VIAL IV PRN (06:59)
[2021-08-01] MEDS ORDERED: ATROPINE SULFATE 0.1 MG/ML 10ML SYR IV PRN (06:59)
[2021-08-01] MEDS ORDERED: LABETALOL HCL IV 5 MG/ML 20ML IV PRN (06:59)
[2021-08-01] MEDS ORDERED: fentaNYL citrate 100 MCG/2 ML VIAL IV PRN (06:59)
[2021-08-01] MEDS ORDERED: HYDROmorphone INJ 2 MG/ML SYR/VIAL IV PRN (06:59)
[2021-08-01] MEDS ORDERED: ePHEDrine sulfate 50 MG/ML AMP IV PRN (06:59)
[2021-08-01 07:08] LABS: BUN Creatinine Ratio 23.4 (10-20); Calcium 8.6 mg/dl (8.5-10.1); Creatinine Clr Calc Pharmacy 125.9 ml/min; Est GFR (Non-African American) 97.5 ml/min; Potassium 4.2 mmol/L (3.5-5.1)
[2021-08-01 07:09] LABS: Phosphorus 3.9 mg/dl (2.5-4.9)
[2021-08-01] MEDS ORDERED: BUPIVACAINE 0.5 % 5 MG/1 ML MPF 30ML VIAL ONE (07:14)
--- NOTE | 2021-08-01 07:18 | History & Physical Bridge Note ---
Date of Service August 01, 2021 History & Physical Bridge Note I have examined the patient, reviewed the History & Physical and in the interval since the performance of the History & Physical I have noted the following changes of clinical significance: no changes noted
[2021-08-01] MEDS ORDERED: ACETAMINOPHEN 1,000 MG/100 ML VIAL IV ONE (08:23)
--- NOTE | 2021-08-01 08:23 | Post Operative Brief Note ---
PG Immediate Post Op with CF Date of Surgery August 01, 2021 Pre & Post Diagnosis Operation Date: 08/01/21 07:30 Pre-Op Diagnosis: Right Axillary Abcess, right anterior shoulder abscess Post-Op Diagnosis: Right Axillary Abcess, right anterior shoulder abscess I identified the patient and participated in the time-out.: Yes Procedure Operation Date: 08/01/21 07:30 Actual Procedures p Incision and Drainage, Right Axillary Shoulder Abscess(Right) - Cody Murillo MD, FACS Surgeon Cody Murillo MD, FACS Dormitory Supervisor Sheldon Londono Estimated Blood Loss 20 Findings Consistent with Post-Op Diagnosis Patient had a very deep right axillary abscess and also extended to the right anterior shoulder area Specimens Specimen Description: 1: Right Anterior Shoulder Abcess for Culture 2: Right Axillary Abcess for Culture Drains Robson Drain
--- NOTE | 2021-08-01 08:44 | Anesthesiology Progress Note ---
Date of Service August 01, 2021 Anesthesia Post Procedure Vital Signs Vital Signs: Temp Pulse Pulse Resp BP Pulse Ox 08/01/21 06:57 36.8 C 60 20 125/65 99 08/01/21 06:14 36.8 C 56 L 16 133/85 98 07/31/21 22:51 37.1 C 61 15 120/66 94 07/31/21 15:04 36.9 C 57 L 16 150/78 H 99 Pain Intensity Right Upper Arm: Pain Intensity: 2 Transfer of Care Handoff Completed per policy Notes Mental Status: alert / awake / arousable Patient Amnestic to Procedure: Yes Nausea / Vomiting: adequately controlled Pain: adequately controlled Airway Patency, RR, SpO2: stable & adequate BP & HR: stable & adequate Hydration State: stable & adequate Anesthetic Complications: no major complications apparent and Pt Satisfied with anesthetic care Notes: The patient is awake and comfortable. His vital signs are stable in PACU but have not yet been uploaded into [employer].
[2021-08-01] MEDS ORDERED: PROMETHAZINE HCL 12.5 MG in SODIUM CHLORIDE 0.9% 50 ML IV PRN (09:24)
[2021-08-01] MEDS ORDERED: oxyCODONE HCL IR 5 MG TAB (IMMEDIATE RELEASE) PO PRN (09:24)
[2021-08-01] MEDS: METOPROLOL SUCC 50MG EXT REL TAB PO SCH ×2 (09:41→20:52)
[2021-08-01] MEDS: PANTOprazole 40 MG TAB PO SCH (09:52)
[2021-08-01] MEDS: CHOLECALCIFEROL 1,000 UNITS 25 MCG TAB PO SCH (09:53)
[2021-08-01] MEDS: lisinopril 10 MG TAB PO SCH (09:54)
[2021-08-01] MEDS: ASPIRIN 81 MG ECTAB PO SCH (09:54)
[2021-08-01] MEDS: SERTRALINE HCL 100 MG TABLET PO SCH (09:54)
[2021-08-01] MEDS: HEPARIN SOD 5,000 UNIT/0.5 ML VIAL SQ SCH ×2 (10:36→20:53)
[2021-08-01] MEDS: buprenorphine HCL 8 MG SUBL SL SCH ×2 (10:36→20:50)
--- NOTE | 2021-08-01 10:52 | Operative Report (OR) ---
DATE OF OPERATION: 08/01/2021 NAME OF OPERATION: Incision and drainage of complex abscesses, right anterior shoulder and right axi lla. PREOPERATIVE DIAGNOSIS: Abscesses, right anterior shoulder and right axilla. POSTOPERATIVE DIAGNOSIS: Abscesses, right anterior shoulder and right axilla. STAFF SURGEON: Cody Murillo MD. ROTARY PLANER SET UP OPERATOR: Tyler Londono PA-C. ANESTHESIA: General LMA. DESCRIPTION OF PROCEDURE: The patient was brought in the operating room and placed on the operating table in supine position. His right shoulder and axilla were prepped and draped in the usual fashion . My clinical trials assistant helped with prepping, draping, drainage of the abscesses and wound care. Initially, I aspirated both sites. The culture 1 was the right anterior shoulder, culture 2 was the right axill a. I did recover purulent fluid from both. The axilla was approached first. The abscess was relativ jasmina deep approximately 2 cm. I encountered a very deep large pocket, which was probably 12-14 cm diann p extending up under the pectoralis muscle and then laterally. It was irrigated and packed. I then a pproached the right anterior shoulder abscess, which was opened. It again was more superficial to th e muscle; however, did extend approximately 6-7 cm around and then also extended to the axilla. This was also aspirated and then irrigated and packed. At this point, the packing was removed. A [place] drain was placed through and through from the right anterior shoulder abscess to the axillary absces s secured to the skin using 3-0 nylon suture. Both sites were then packed with Betadine-moistened Ke rlix and then dressing applied. The patient was transferred to recovery room in stable condition. Job ID: [id number]
--- NOTE | 2021-08-01 12:01 | Anesthesiology Progress Note ---
Date of Service August 01, 2021 Anesthesia Post Procedure Vital Signs Vital Signs: Temp Pulse Pulse Pulse Resp BP Pulse Ox 08/01/21 11:14 37.2 C 64 16 124/63 98 08/01/21 10:17 36.7 C 64 16 129/49 L 96 08/01/21 09:44 36.9 C 59 L 16 132/65 97 08/01/21 09:15 37 C 63 18 141/70 H 94 08/01/21 08:50 64 14 135/60 94 08/01/21 08:40 64 17 138/66 100 08/01/21 08:32 36.5 C 80 17 136/79 98 08/01/21 06:57 36.8 C 60 20 125/65 99 08/01/21 06:14 36.8 C 56 L 16 133/85 98 07/31/21 22:51 37.1 C 61 15 120/66 94 07/31/21 15:04 36.9 C 57 L 16 150/78 H 99 Pain Intensity Right Upper Arm: Pain Intensity: 2 Right Axilla: Pain Intensity: 2 Transfer of Care Handoff Completed per policy Notes Mental Status: alert / awake / arousable Patient Amnestic to Procedure: Yes Nausea / Vomiting: adequately controlled Pain: adequately controlled Airway Patency, RR, SpO2: stable & adequate BP & HR: stable & adequate Hydration State: stable & adequate Anesthetic Complications: no major complications apparent
--- NOTE | 2021-08-01 14:13 | Hospitalist Progress Note ---
Date of Service August 01, 2021 Assessment & Plan (1) Cellulitis of chest wall: Plan: 45 y/o M with PMH HTN, dyslipidemia, depression, H/O opioid abuse on Subutex who presented to ER 07/28 with complaint of right axilla and chest redness and pain. Per patient he noticed pimple-like area to right axilla 5 days ago which he squeezed. Reports no drainage but progressively developing surrounding erythema and edema since afterwards associated with significant pain/fever/headache. Patient also reports he had tick attached to the right chest and right breast couple of days ago. 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 Denies history of known MRSA in past. Right axilla cellulitis and abscess: Tick bite versus traumatic WBC 25K on admission -> 12.1K today Procalcitonin 1.07 on admission, negative Lyme, positive MRSA, anaplasmosis pending Admitting CT chest:Right axillary fat stranding and skin thickening likely representing acute infectious/inflammatory process such as cellulitis. Underlying reactive axillary lymph nodes noted. No drainable fluid collection is seen. 07/31/2021 US Interval development of an elongated 10 x 6.7 x 2.2 cm complex right axillary fluid collection and an additional complex 7.6 x 2.2 x 6.3 cm fluid collection adjacent to the right shoulder. These at least represent phlegmon and are suspicious for developing abscesses. General surgery consulted POD#0 incision and drainage by Dr. Murillo Blood cultures 07/27 NGTD Rocephin 07/27, Vanco 07/27-7, Zosyn 07/28-current, doxycycline 07/28-8, Dapto added 07/30 for concerns of worsening erythema ID recommends discontinuing Zosyn and discharging on p.o. Bactrim and doxycycline to complete a 10 to 14-day course Notified ID (Dr. Stark) of abscess development and subsequent I&D. Operative cultures obtained and pending. Once cultures result, will need new recommendations from ID. Continue Dapto and Zosyn. Pain management with an NSAID, avoid opiates given history of opiate abuse. On PPI for GI prophylaxis. HTN (hypertension): BP controlled, continue lisinopril, metoprolol Dyslipidemia: Continue atorvastatin History of opioid abuse: Continue Suboxone Depression: Continue sertraline Tobacco use: Denies nicotine patch Smoking cessation recommended DVT Prophylaxis: SCDs, ambulation Full Code Follows with Dr Valles for routine care Disposition: Pending, POD#0 incision and drainage, cultures pending. Patient recently quit his job and does not have health insurance. Case management working with patient for Medicaid application. Admission and Anticipated Discharge Date Admission Date: July 29, 2021 Supervising Physician Co-Signing Physician Notes Patient seen and examined by me, care coordinated with XI Nuñez, please refer to her note above for further detail. Patient is currently postop, I&D of axillary abscess. He is resting, in no acute distress, reports pain is improved. Currently no fevers, chills, chest pain, shortness of breath, no abdominal pain, nausea or vomiting, overall comfortable. He is awake alert oriented answering questions appropriately. Lungs are clear to auscultation bilaterally without any wheezing rhonchi or crackles, heart sounds regular, abdomen soft nontender nondistended, positive bowel sounds. Patient moves extremities spontaneously. Continue IV antibiotics, await cultures, will need to follow-up with ID before discharge, for their recommendations. Babatunde Whitney MD Subjective Patient seen and examined. Follow-up for right axilla cellulitis and abscess. US obtained yesterday showed 2 separate abscesses; one in the right axilla and the other in the right upper medial arm POD#0 incision and drainage by Dr. Murillo Patient seen postoperatively, doing well. Reports marked improvement in pain. Denies chest pain and shortness of breath. No abdominal pain or nausea. Tolerating breakfast. Review of Systems Review of Systems: All systems reviewed & are unremarkable except as noted in Subjective Physical Exam Constitutional: no acute distress Resting in bed, having breakfast Respiratory: normal respiratory effort, lungs clear to auscultation Cardiovascular: Rate/Rhythm: regular rate and regular rhythm Vessels: normal peripheral pulses Extremities: no edema Gastrointestinal (Abdomen): Percussion/Palpation: abdomen soft; abdomen nontender Skin: no rashes, warm and dry Surgical dressing to right upper arm and axilla CDI, erythema not extending outside of previously outlined area Neurologic: moves all extremities; no focal motor deficits Psychiatric: A+Ox3, euthymic affect Results & Data Results & Data ([facility]) Vital Signs (Past 12 Hours) Vital Signs Temp Pulse Pulse Pulse Resp BP Pulse Ox 08/01/21 13:16 36.7 C 59 L 16 123/63 92 11/10/21 11:14 37.2 C 64 16 124/63 98 08/01/21 10:17 36.7 C 64 16 129/49 L 96 08/01/21 09:44 36.9 C 59 L 16 132/65 97 08/01/21 09:15 37 C 63 18 141/70 H 94 08/01/21 08:50 64 14 135/60 94 08/01/21 08:40 64 17 138/66 100 08/01/21 08:32 36.5 C 80 17 136/79 98 08/01/21 06:57 36.8 C 60 20 125/65 99 08/01/21 06:14 36.8 C 56 L 16 133/85 98 Laboratory Results Short CBC 08/01/21 Range/Units 05:28 WBC 12.16 H (4.8-10.8) K/uL Hgb 11.0 L (14.0-18.0) g/dL Hct 32.8 L (42-52) % Plt Count 227 (130-400) K/uL BMP 08/01/21 05:28 Sodium 136 Potassium 4.2 Chloride 104 Carbon Dioxide 28 BUN 22 H Creatinine 0.94 Glucose 97 Calcium 8.6
[2021-08-01] MEDS: traMADol HCL 50 MG TABLET PO PRN (20:53)
[2021-08-01] MEDS: ATORVASTATIN 20 MG TAB PO SCH (20:54)
[2021-08-01] MEDS: DAPTOmycin 300 MG in SYRINGE 0 ML IV SCH (20:55)
[2021-08-01] MEDS: traZODone HCL 50 MG TAB PO SCH (21:05)
[2021-08-02] MEDS: PIPERACILLIN/TAZOBACTAM 3.375 GM in DEXTROSE 5% 100 ML IV SCH ×3 (05:37→21:37)
[2021-08-02] MEDS: ACETAMINOPHEN 500 MG TAB PO SCH ×3 (05:37→21:36)
[2021-08-02] MEDS: HYDROmorphone INJ 1 MG/ML SYRINGE IV PRN ×2 (05:41→11:28)
--- NOTE | 2021-08-02 08:09 | Surgery Progress Note ---
Date of Service August 02, 2021 Assessment & Plan (1) Axillary abscess: Plan: 08/01/2021 patient status post incision and drainage of right anterior shoulder abscess and right axillary abscess I believe they were communicating The axillary abscess was very deep and contain a significant amount of purulent material Cultures are growing gram-positive cocci Clinically patient has much less cellulitis and his pain is significantly improved Wound care nurses are helping and we will remove the packing today and proceed with appropriate Wound care It may be that he requires a wound VAC at some point and also would require wound clinic follow-up Continue current treatment for at least 1-2 more days so we can isolate the organism Admission and Anticipated Discharge Date Admission Date: July 29, 2021 Results & Data ([facility]) Vital Signs (Past 12 Hours) Vital Signs Temp Pulse Resp BP Pulse Ox 08/02/21 03:49 36.7 C 58 L 16 111/58 L 96 08/01/21 22:58 37 C 63 16 118/62 97 08/01/21 20:33 37 C 58 L 16 115/67 98 PG Care Time/CCT Total # of Minutes Spent Total Time Spent with Patient: Total time spent is greater than 50% in coordination of care (as documented) at patient's floor/unit and/or counseling patient: Coding Level of Care Code None Diagnoses Axillary abscess L02.419
[2021-08-02 08:27] LABS: BUN Creatinine Ratio 22.1 (10-20); Creatinine Clr Calc Pharmacy 128.7 ml/min; Est GFR (Non-African American) 100.1 ml/min; Magnesium 2.3 mg/dl (1.8-2.4); Phosphorus 3.7 mg/dl (2.5-4.9); Potassium 4.5 mmol/L (3.5-5.1)
[2021-08-02 08:31] LABS: Hemoglobin 11.9 g/dL (14.0-18.0); Mean Corpuscular Hemoglobin 30.7 pg (25-34); Mean Corpuscular Hgb Conc 33.1 g/dL (32-36); Mean Platelet Volume 10.3 fL (7.4-10.4); Platelet Count 226 K/uL (130-400); RDW Coefficient of Variation 13.5 % (11.5-14.5); RDW Standard Deviation 45.7 fL (36.4-46.3); Red Blood Count 3.87 M/uL (4.7-6.1); White Blood Count 12.42 K/uL (4.8-10.8)
[2021-08-02] MEDS: METOPROLOL SUCC 50MG EXT REL TAB PO SCH ×2 (08:54→21:22)
[2021-08-02] MEDS: ASPIRIN 81 MG ECTAB PO SCH (08:59)
[2021-08-02] MEDS: CHOLECALCIFEROL 1,000 UNITS 25 MCG TAB PO SCH (08:59)
[2021-08-02] MEDS: buprenorphine HCL 8 MG SUBL SL SCH ×2 (08:59→21:36)
[2021-08-02] MEDS: HEPARIN SOD 5,000 UNIT/0.5 ML VIAL SQ SCH ×2 (09:00→21:21)
[2021-08-02] MEDS: lisinopril 10 MG TAB PO SCH (09:00)
[2021-08-02] MEDS: SERTRALINE HCL 100 MG TABLET PO SCH (09:01)
[2021-08-02] MEDS: PANTOprazole 40 MG TAB PO SCH (10:45)
--- NOTE | 2021-08-02 15:05 | Hospitalist Progress Note ---
Date of Service August 02, 2021 Assessment & Plan (1) Cellulitis of chest wall: Plan: This is a 45 y/o M with PMH HTN, dyslipidemia, depression, H/O opioid abuse on Subutex who presented to ER 07/28 with complaint of right axilla and chest redness and pain. Per patient he noticed pimple-like area to right axilla 5 days ago which he squeezed. Reports no drainage but progressively developing surrounding erythema and edema since afterwards associated with significant pain/fever/headache. Patient also reports he had tick attached to the right chest and right breast couple of days ago. 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 Denies history of known MRSA in past. Right axilla cellulitis and abscess: Tick bite versus traumatic WBC 25K on admission -> 12.4K today Procalcitonin 1.07 on admission, negative Lyme, positive MRSA, anaplasmosis pending Admitting CT chest:Right axillary fat stranding and skin thickening likely representing acute infectious/inflammatory process such as cellulitis. Underlying reactive axillary lymph nodes noted. No drainable fluid collection is seen. 07/31/2021 US Interval development of an elongated 10 x 6.7 x 2.2 cm complex right axillary fluid collection and an additional complex 7.6 x 2.2 x 6.3 cm fluid collection adjacent to the right shoulder. These at least represent phlegmon and are suspicious for developing abscesses General surgery consulted POD#1 incision and drainage by Dr. Murillo Blood cultures 07/27 growing staph, sensitivities pending Rocephin 07/27, Vanco 07/27-7, Zosyn 07/28-current, doxycycline 07/28-8, Dapto added 07/30 for concerns of worsening erythema ID recommends discontinuing Zosyn and discharging on p.o. Bactrim and doxycycline to complete a 10 to 14-day course Notified ID (Dr. Stark) of abscess development and subsequent I&D. Operative cultures obtained and pending. Once cultures result, will need new recommendations from ID. Continue Dapto and Zosyn. Pain management with an NSAID, avoid opiates given history of opiate abuse. On PPI for GI prophylaxis HTN (hypertension): BP controlled, continue lisinopril, metoprolol Dyslipidemia: Continue atorvastatin History of opioid abuse: Continue Suboxone Depression: Continue sertraline Tobacco use: Denies nicotine patch Smoking cessation recommended DVT Prophylaxis: SCDs, early ambulation Full Code Follows with Dr. Valles for routine care Admission and Anticipated Discharge Date Admission Date: July 29, 2021 Supervising Physician Co-Signing Physician Notes Patient seen and examined by me, care coordinated with Juany Hudson PA-C, please refer to her note above for further detail. Patient is s/p I&D of axillary abscesses yesterday. He is doing well, in no acute distress. Currently no fevers, chills, chest pain, shortness of breath, no abdominal pain, nausea or vomiting, overall comfortable. He is awake alert oriented answering questions appropriately. Lungs are clear to auscultation bilaterally without any wheezing rhonchi or crackles, heart sounds regular, abdomen soft nontender nondistended, positive bowel sounds. Patient moves extremities spontaneously. Seen by wound care - wounds packed , no outer dressings Continue IV antibiotics, await cultures, will need to follow-up with ID before discharge, for their recommendations. Babatunde Whitney MD Subjective Patient seen and examined in 322-1. Follow-up for right axilla cellulitis and abscess. POD#1 of 2 s/p I&D of 2axillary abscesses incision by Dr. Murillo. Feeling well today. Still with some tenderness to post I&D sites. No fever, chills, headache, CP, SOB, n/v/d, dysuria. Tolerating diet without issue. Review of Systems Review of Systems: At least ten systems reviewed and negative except as noted in the HPI. Physical Exam Physical Exam: Gen: WD/WN, NAD, sitting in bed, A&Ox3 HEENT: Normocephalic, atraumatic, conjunctivae moist, sclerae anicteric, mucous membranes moist Lung: Clear to Auscultation bilaterally, no wheezes/rales/rhonchi Heart: Regular rate, regular rhythm, no murmurs, rubs, or gallops Abdomen: Soft, NT, ND +BS x 4 Extremities: no edema Skin: Warm, no rash. + Surgical dressings in R axilla and RUE c/d/i Results & Data Results & Data ([facility]) Vital Signs (Past 12 Hours) Vital Signs Temp Pulse Resp BP Pulse Ox 08/02/21 14:29 36.7 C 67 18 122/68 99 08/02/21 08:23 36.7 C 57 L 18 135/72 100 08/02/21 03:49 36.7 C 58 L 16 111/58 L 96 Laboratory Results Short CBC 08/02/21 Range/Units 08:11 WBC 12.42 H (4.8-10.8) K/uL Hgb 11.9 L (14.0-18.0) g/dL Hct 36.0 L (42-52) % Plt Count 226 (130-400) K/uL BMP 08/02/21 07:16 Sodium 135 L Potassium 4.5 Chloride 104 Carbon Dioxide 25 BUN 20 H Creatinine 0.92 Glucose 104 H Calcium 9.[address] 07/27/21 09:43 CT chest diagnostic wo con CLINICAL HISTORY: right axiliary pain TECHNIQUE: Multidetector row helical CT of the chest was performed. Coronal and sagittal reformations were obtained. Automated dose lowering techniques and/or adjustment according to patient size were utilized for this exam. Comparison: None available at the time of this dictation. FINDINGS: Lungs and pleura: Normal. Heart and pericardium: Heart size is normal. No pericardial effusion. Vessels: Moderate atherosclerotic changes in the aorta and coronary arteries. Mediastinum and shalom: Unremarkable. Chest wall and lower neck: There is fat stranding and skin thickening in the right axilla with subcentimeter axillary nodes. Abdomen: A hiatal hernia is seen. Bones: Degenerative changes in the thoracic spine. IMPRESSION: Right axillary fat stranding and skin thickening likely representing acute infectious/inflammatory process such as cellulitis. Underlying reactive axillary lymph nodes noted. No drainable fluid collection is seen. ACT 112: Negative or not required by law. Electronically signed by: Sharath Nolasco M.D. 07/27/2021 11:[address] 07/29/21 08:05 CT OF THE CHEST WITHOUT IV CONTRAST CLINICAL HISTORY: Right axillary cellulitis expanding; r/o abscess/path COMPARISON STUDY: Chest CT July 27, 2021. CT DOSE: 918.62 mGy.cm TECHNIQUE: Axial images of the chest were obtained without IV contrast. Images were reviewed in the axial, sagittal, and coronal planes. IV contrast was not administered for this examination. Automated exposure control was utilized for the study. A dose lowering technique was utilized adhering to the principles of ALARA. FINDINGS: No enlarged axillary, mediastinal or hilar lymph nodes are present. Size of the heart is within normal limits. There is no pericardial effusion. No pneumothorax or pleural effusion is noted. There is no consolidation. Central airways are patent. There are no suspicious pulmonary nodules. Visualized portions of the upper abdomen are unremarkable on this unenhanced exam. Extensive stranding and associated fluid within the right axilla is noted. Extension into the right upper extremity and right chest wall is noted. These findings have progressed since CT of July 27, 2021. There is no soft tissue gas. Sensitivity for detection of abscess is diminished on this unenhanced exam but no fluid collection is identified. Prominent right axillary lymph nodes are likely reactive. No erosion of the adjacent bones is identified to suggest osteomyelitis. Associated skin thickening is noted. IMPRESSION: 1. Increase in extent of of the extensive inflammatory process centered within the right axilla, extending into the right upper extremity and right chest wall since CT of July 27, 2021. Associated fluid, stranding and skin thickening consistent with cellulitis. No fluid collection to suggest abscess. No soft t issue gas. 2. Prominent right axillary lymph nodes which are likely reactive. ACT 112: Negative or not required by law. Electronically signed by: Odilon Light M.D. 07/29/2021 10:26 AM Axilla US 07/31/21 13:00 RIGHT AXILLARY ULTRASOUND CLINICAL HISTORY: right axilla, eval for abscess COMPARISON STUDY: Chest CT July 29, 2021. TECHNIQUE: Sonography of the right axilla was performed. FINDINGS: Prominent right axillary lymph nodes are likely reactive. Note is made of a complex right axillary elongated fluid collection which measures 10 x 6.7 x 2.2 cm. This contains hypoechoic material. There is no color flow within this collection. In addition, there is an additional 7.6 x 2.2 x 6.3 cm elongated fluid collection adjacent to the right shoulder. These collections were not clearly evident on CT of July 29, 2021. IMPRESSION: 1. Interval development of an elongated 10 x 6.7 x 2.2 cm complex right axillary fluid collection and an additional complex 7.6 x 2.2 x 6.3 cm fluid collection adjacent to the right shoulder. These at least represent phlegmon and are suspicious for developing abscesses. 2. Prominent right axillary lymph nodes which are likely reactive. ACT 112: Negative or not required by law. Electronically signed by: Odilon Light M.D. 07/31/2021 1:52 PM Medications Administered Current Inpatient Medications Acetaminophen (Acetaminophen 500 Mg Tab) 1,000 mg PO Q8H [facility] Stop: 08/26/21 13:14 Last Admin: 08/02/21 13:27 Dose: 1,000 mg Documented by: Aspirin (Aspirin 81 Mg Ectab) 81 mg PO DAILY DAVID Stop: 08/27/21 08:59 Last Admin: 08/02/21 08:59 Dose: 81 mg Documented by: Atorvastatin Calcium (Atorvastatin 20 Mg Tab) 20 mg PO HS DAVID Stop: 08/26/21 20:59 Last Admin: 08/01/21 20:54 Dose: 20 mg Documented by: Buprenorphine HCl (Buprenorphine Hcl 8 Mg Subl) 8 mg SL BID DAVID Stop: 08/26/21 20:59 Last Admin: 08/02/21 08:59 Dose: 8 mg Documented by: Heparin Sodium (Porcine) (Heparin Sod 5,000 Unit/0.5 Ml Vial) 5,000 units SQ Q12 DAVID Stop: 08/29/21 09:29 Last Admin: 08/02/21 09:00 Dose: 5,000 units Documented by: Hydromorphone HCl (Hydromorphone Inj 0.5 Mg/0.5 Ml Syr) 0.5 mg IV Q3HWA PRN PRN Reason: Pain Stop: 08/15/21 09:23 Hydromorphone HCl (Hydromorphone Inj 1 Mg/Ml Syringe) 1 mg IV Q3HWA PRN PRN Reason: Severe Pain Stop: 08/15/21 09:23 Last Admin: 08/02/21 11:28 Dose: 1 mg Documented by: Piperacillin Sod/Tazobactam (Sod 3.375 gm/ Dextrose) 115 mls @ 28.75 mls/hr IV Q8H DAVID; Protocol Stop: 08/04/21 21:59 Last Infusion: 08/02/21 16:56 Dose: 28.8 mls/hr Documented by: Promethazine HCl 12.5 mg/ (Sodium Chloride) 50.5 mls @ 202 mls/hr IV Q6H PRN PRN Reason: Nausea And Vomiting Stop: 08/27/21 19:20 Last Infusion: 07/29/21 20:55 Dose: Infused Documented by: Daptomycin 300 mg/ Syringe 6 mls @ 0.01 mls/min IV Q24H [facility]; Protocol Stop: 08/06/21 21:59 Last Admin: 08/01/21 20:55 Dose: 0.01 mls/min Documented by: Promethazine HCl 12.5 mg/ (Sodium Chloride) 50.5 mls @ 204 mls/hr IV Q6H PRN PRN Reason: Nausea And Vomiting Stop: 08/31/21 09:23 Lisinopril (L[facility]opril 10 Mg Tab) [facility] Stop: 08/27/21 08:59 Last Admin: 08/02/21 09:00 Dose: 10 mg Documented by: Metoprolol Succinate (Metoprolol Succ 50mg Ext Rel Tab) 50 mg PO BID [facility] Stop: 08/26/21 20:59 Last Admin: 08/02/21 08:54 Dose: Not Given Documented by: Miscellaneous Information (Piperacill/Tazobac Consult Active) 1 ea N/A UD PRN PRN Reason: Consult Stop: 08/27/21 15:05 Miscellaneous Information (Daptomycin Consult Active) 1 ea N/A UD PRN PRN Reason: Consult Stop: 08/29/21 21:28 Ondansetron HCl (Ondansetron Inj 2 Mg/Ml 2 Ml Vial) 4 mg IV Q6H PRN PRN Reason: Nausea Stop: 08/26/21 15:36 Last Admin: 07/29/21 07:49 Dose: 4 mg Documented by: Oxycodone HCl (Oxycodone Hcl Ir 5 Mg Tab (Immediate Release)) 5 mg PO Q4HWA PRN PRN Reason: Pain Stop: 08/15/21 09:23 Pantoprazole Sodium (Pantoprazole 40 Mg Tab) 40 mg PO [facility] Stop: 08/29/21 08:59 Last Admin: 08/02/21 10:45 Dose: 40 mg Documented by: Polyethylene Glycol (Polyethylene (Miralax) 17 Gm Pack) 17 gm PO DAILY PRN PRN Reason: Constipation Stop: 08/26/21 15:36 Sertraline HCl (Sertraline Hcl 100 Mg Tablet) 100 mg PO [facility] Stop: 08/27/21 08:59 Last Admin: 08/02/21 09:01 Dose: 100 mg Documented by: Tramadol HCl (Tramadol Hcl 50 Mg Tablet) 50 mg PO Q6H PRN PRN Reason: Severe Pain Stop: 08/26/21 19:44 Last Admin: 08/01/21 20:53 Dose: 50 mg Documented by: Trazodone HCl (Trazodone Hcl 50 Mg Tab) 50 mg PO HS DAVID Stop: 08/26/21 20:59 Last Admin: 08/01/21 21:05 Dose: 50 mg Documented by: Vitamin D (Cholecalciferol 1,000 Units 25 Mcg Tab) 5,000 units PO DAILY DAVID Stop: 08/28/21 08:59 Last Admin: 08/02/21 08:59 Dose: 5,000 units Documented by:
[2021-08-02] MEDS: HYDROmorphone INJ 0.5 MG/0.5 ML SYR IV PRN (19:39)
[2021-08-02] MEDS: ADVANCED PROBIOTIC 1250 MG CAPSULE PO SCH (21:18)
[2021-08-02] MEDS: ATORVASTATIN 20 MG TAB PO SCH (21:21)
[2021-08-02] MEDS: DAPTOmycin 300 MG in SYRINGE 0 ML IV SCH (21:36)
[2021-08-02] MEDS: traZODone HCL 50 MG TAB PO SCH (21:36)
[2021-08-03] MEDS: ACETAMINOPHEN 500 MG TAB PO SCH ×3 (04:57→20:48)
[2021-08-03] MEDS: PIPERACILLIN/TAZOBACTAM 3.375 GM in DEXTROSE 5% 100 ML IV SCH (05:00)
[2021-08-03 06:22] LABS: Hematocrit (blood only) 34.1 % (42-52); Hemoglobin 11.1 g/dL (14.0-18.0); Mean Corpuscular Hemoglobin 30.6 pg (25-34); Mean Corpuscular Hgb Conc 32.6 g/dL (32-36); Mean Corpuscular Volume 93.9 fL (80-100); Mean Platelet Volume 9.4 fL (7.4-10.4); Platelet Count 301 K/uL (130-400); RDW Coefficient of Variation 13.5 % (11.5-14.5); RDW Standard Deviation 46.3 fL (36.4-46.3); Red Blood Count 3.63 M/uL (4.7-6.1); White Blood Count 10.41 K/uL (4.8-10.8)
[2021-08-03 07:19] LABS: BUN Creatinine Ratio 23.8 (10-20); Calcium 9.2 mg/dl (8.5-10.1); Creatinine Clr Calc Pharmacy 116.1 ml/min; Est GFR (African American) 102.4 ml/min; Est GFR (Non-African American) 88.4 ml/min; Potassium 4.6 mmol/L (3.5-5.1)
[2021-08-03] MEDS: ASPIRIN 81 MG ECTAB PO SCH (07:55)
[2021-08-03] MEDS: HEPARIN SOD 5,000 UNIT/0.5 ML VIAL SQ SCH ×2 (07:55→20:47)
[2021-08-03] MEDS: SERTRALINE HCL 100 MG TABLET PO SCH (07:55)
[2021-08-03] MEDS: PANTOprazole 40 MG TAB PO SCH (07:55)
[2021-08-03] MEDS: buprenorphine HCL 8 MG SUBL SL SCH ×2 (07:56→20:48)
[2021-08-03] MEDS: lisinopril 10 MG TAB PO SCH (07:56)
[2021-08-03] MEDS: traMADol HCL 50 MG TABLET PO PRN ×2 (07:56→14:23)
[2021-08-03] MEDS: ADVANCED PROBIOTIC 1250 MG CAPSULE PO SCH (07:56)
[2021-08-03] MEDS: CHOLECALCIFEROL 1,000 UNITS 25 MCG TAB PO SCH (07:56)
[2021-08-03] MEDS: METOPROLOL SUCC 50MG EXT REL TAB PO SCH ×2 (07:58→20:49)
--- NOTE | 2021-08-03 08:16 | Surgery Progress Note ---
Date of Service August 03, 2021 Assessment & Plan (1) Axillary abscess: Plan: POD#2 I&D of right anterior shoulder abscess and right axillary abscess WBC 10, afebrile. Currently on daptomycin and zosyn. Cultures growing MRSA. Infectious diseases has been consulted for abx regimen/duration Planning on wound vac placement with wound care today. Will ask patient to be followed up in our wound care clinic for outpt follow up Pt seen by Dr Murillo earlier this AM Admission and Anticipated Discharge Date Admission Date: July 29, 2021 Subjective Patient is feeling well. Pain is much improved. Offers no complaints. Physical Exam Physical Exam: awake/alert, in good spirits Musculoskeletal: R chest/arm erythema improved. Dressing intact Results & Data ([facility]) Vital Signs (Past 12 Hours) Vital Signs Temp Pulse Resp BP Pulse Ox 08/03/21 07:31 36.6 C 49 L 18 124/76 96 08/02/21 22:49 37 C 66 16 108/65 96 PG Care Time/CCT Total # of Minutes Spent Total Time Spent with Patient: Total time spent is greater than 50% in coordination of care (as documented) at patient's floor/unit and/or counseling patient: Coding Level of Care Code None Diagnoses Axillary abscess L02.419
[2021-08-03] MEDS: HYDROmorphone INJ 1 MG/ML SYRINGE IV PRN (09:25)
[2021-08-03] MEDS: HYDROmorphone INJ 0.5 MG/0.5 ML SYR IV PRN ×2 (16:21→21:18)
--- NOTE | 2021-08-03 18:03 | Hospitalist Progress Note ---
Date of Service August 03, 2021 Assessment & Plan (1) Cellulitis of chest wall: Plan: This is a 45 y/o M with PMH HTN, dyslipidemia, depression, H/O opioid abuse on Subutex who presented to ER 07/28 with complaint of right axilla and chest redness and pain. Per patient he noticed pimple-like area to right axilla 5 days ago which he squeezed. Reports no drainage but progressively developing surrounding erythema and edema since afterwards associated with significant pain/fever/headache. Patient also reports he had tick attached to the right chest and right breast couple of days ago. 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 Denies history of known MRSA in past. MRSA infection of R axilla, cellulitis and abscess: Tick bite versus traumatic WBC 25K on admission -> 12.4K today Procalcitonin 1.07 on admission, negative Lyme, positive MRSA, anaplasmosis pending Admitting CT chest:Right axillary fat stranding and skin thickening likely representing acute infectious/inflammatory process such as cellulitis. Un derlying reactive axillary lymph nodes noted. No drainable fluid collection is seen. 07/31/2021 US Interval development of an elongated 10 x 6.7 x 2.2 cm complex right axillary fluid collection and an additional complex 7.6 x 2.2 x 6.3 cm fluid collection adjacent to the right shoulder. These at least represent phlegmon and are suspicious for developing abscesses General surgery consulted POD#2 incision and drainage by Dr. Murillo Operative blood cultures from 08/01 growing staph MRSA sensitive to Bactrim Discussed antibiotic treatment course with Dr. Strak following results of operative cultures -recommends 10-14 day course Will continue IV dapto until discharge (rocephin discontinued). Plan to discharge on 2 tabs DS Bactrim BID to complete 14 day course Surgery placed wound vac, awaiting home wound vac approval from insurance per CM. Should come by tomorrow. Home health coordinated Scheduled to be seen in wound care center on 08/10/21 at 8:00am. Directed to schedule general surgery appointment for 2 weeks after this appointment Pain management with an NSAID, avoid opiates given history of opiate abuse. On PPI for GI prophylaxis HTN (hypertension): BP controlled, continue lisinopril, metoprolol Dyslipidemia: Continue atorvastatin History of opioid abuse: Continue Suboxone Depression: Continue sertraline Tobacco use: Denies nicotine patch Smoking cessation recommended DVT Prophylaxis: SCDs, early ambulation Full Code Follows with Dr. Valles for routine care Admission and Anticipated Discharge Date Admission Date: July 29, 2021 Supervising Physician Co-Signing Physician Notes Patient seen and examined by me, care coordinated with Juany Hudson PA-C, please refer to her note above for further detail. Patient is s/p I&D of axillary abscesses. He is doing well, in no acute distress. Wound vac applied today. Currently no fevers, chills, chest pain, shortness of breath, no abdominal pain, nausea or vomiting, overall comfortable. He is awake alert oriented answering questions appropriately. Lungs are clear to auscultation bilaterally without any wheezing rhonchi or crackles, heart sounds regular, abdomen soft nontender nondistended, positive bowel sounds. Patient moves extremities spontaneously. Culture posit. for MRSA, plan to DC on Bactrim, w/ wound vac and close follow up in wound clinic. Babatunde Whitney MD Subjective Patient seen and examined in 322. Continues to feel better with minimal discomfort at wound site. Wound VAC in place. No fever, chills, chest pain, shortness of breath, nausea, vomiting, abdominal pain, dysuria, diarrhea constipation. Tolerating diet without issue. Plan for discharge once wound VAC and home health can be coordinated. Review of Systems Review of Systems: At least ten systems reviewed and negative except as noted in the HPI. Physical Exam Physical Exam: Gen: WD/WN, NAD, sitting in bed, A&Ox3 HEENT: Normocephalic, atraumatic, conjunctivae moist, sclerae anicteric, mucous membranes moist Lung: Clear to Auscultation bilaterally, no wheezes/rales/rhonchi Heart: Regular rate, regular rhythm, no murmurs, rubs, or gallops Abdomen: Soft, NT, ND +BS x 4 Extremities: no edema Skin: Warm, no rash. + Surgical dressings in R axilla, wound vac in place Results & Data Results & Data ([facility]) Vital Signs (Past 12 Hours) Vital Signs Temp Pulse Resp BP Pulse Ox 08/03/21 14:15 36.6 C 61 18 108/66 99 08/03/21 07:31 36.6 C 49 L 18 124/76 96 Laboratory Results Short CBC 08/03/21 Range/Units 05:51 WBC 10.41 (4.8-10.8) K/uL Hgb 11.1 L (14.0-18.0) g/dL Hct 34.1 L (42-52) % Plt Count 301 (130-400) K/uL BMP 08/03/21 05:51 Sodium 134 L Potassium 4.6 Chloride 102 Carbon Dioxide 28 BUN 24 H Creatinine 1.02 Glucose 98 Calcium 9.[address] 07/27/21 09:43 CT chest diagnostic wo con CLINICAL HISTORY: right axiliary pain TECHNIQUE: Multidetector row helical CT of the chest was performed. Coronal and sagittal reformations were obtained. Automated dose lowering techniques and/or adjustment according to patient size were utilized for this exam. Comparison: None available at the time of this dictation. FINDINGS: Lungs and pleura: Normal. Heart and pericardium: Heart size is normal. No pericardial effusion. Vessels: Moderate atherosclerotic changes in the aorta and coronary arteries. Mediastinum and shalom: Unremarkable. Chest wall and lower neck: There is fat stranding and skin thickening in the right axilla with subcentimeter axillary nodes. Abdomen: A hiatal hernia is seen. Bones: Degenerative changes in the thoracic spine. IMPRESSION: Right axillary fat stranding and skin thickening likely representing acute infectious/inflammatory process such as cellulitis. Underlying reactive axillary lymph nodes noted. No drainable fluid collection is seen. ACT 112: Negative or not required by law. Electronically signed by: Sharath Nolasco M.D. 07/27/2021 11:[address] 07/29/21 08:05 CT OF THE CHEST WITHOUT IV CONTRAST CLINICAL HISTORY: Right axillary cellulitis expanding; r/o abscess/path COMPARISON STUDY: Chest CT July 27, 2021. CT DOSE: 918.62 mGy.cm TECHNIQUE: Axial images of the chest were obtained without IV contrast. Images were reviewed in the axial, sagittal, and coronal planes. IV contrast was not administered for this examination. Automated exposure control was utilized for the study. A dose lowering technique was utilized adhering to the principles of ALARA. FINDINGS: No enlarged axillary, mediastinal or hilar lymph nodes are present. Size of the heart is within normal limits. There is no pericardial effusion. No pneumothorax or pleural effusion is noted. There is no consolidation. Central airways are patent. There are no suspicious pulmonary nodules. Visualized portions of the upper abdomen are unremarkable on this unenhanced exam. Extensive stranding and associated fluid within the right axilla is noted. Extension into the right upper extremity and right chest wall is noted. These findings have progressed since CT of July 27, 2021. There is no soft tissue gas. Sensitivity for detection of abscess is diminished on this unenhanced exam but no fluid collection is identified. Prominent right axillary lymph nodes are likely reactive. No erosion of the adjacent bones is identified to suggest osteomyelitis. Associated skin thickening is noted. IMPRESSION: 1. Increase in extent of of the extensive inflammatory process centered within the right axilla, extending into the right upper extremity and right chest wall since CT of July 27, 2021. Associated fluid, stranding and skin thickening consistent with cellulitis. No fluid collection to suggest abscess. No soft tissue gas. 2. Prominent right axillary lymph nodes which are likely reactive. ACT 112: Negative or not required by law. Electronically signed by: Odilon Light M.D. 07/29/2021 10:26 AM Axilla US 07/31/21 13:00 RIGHT AXILLARY ULTRASOUND CLINICAL HISTORY: right axilla, eval for abscess COMPARISON STUDY: Chest CT July 29, 2021. TECHNIQUE: Sonography of the right axilla was performed. FINDINGS: Prominent right axillary lymph nodes are likely reactive. Note is made of a complex right axillary elongated fluid collection which measures 10 x 6.7 x 2.2 cm. This contains hypoechoic material. There is no color flow within this collection. In addition, there is an additional 7.6 x 2.2 x 6.3 cm elongated fluid collection adjacent to the right shoulder. These collections were not clearly evident on CT of July 29, 2021. IMPRESSION: 1. Interval development of an elongated 10 x 6.7 x 2.2 cm complex right axillary fluid collection and an additional complex 7.6 x 2.2 x 6.3 cm fluid collection adjacent to the right shoulder. These at least represent phlegmon and are suspicious for developing abscesses. 2. Prominent right axillary lymph nodes which are likely reactive. ACT 112: Negative or not required by law. Electronically signed by: Odilon Light M.D. 07/31/2021 1:52 PM
[2021-08-03] MEDS: ATORVASTATIN 20 MG TAB PO SCH (20:47)
[2021-08-03] MEDS: traZODone HCL 50 MG TAB PO SCH (20:48)
[2021-08-03] MEDS: DAPTOmycin 300 MG in SYRINGE 0 ML IV SCH (21:19)
[2021-08-04] MEDS: ACETAMINOPHEN 500 MG TAB PO SCH ×2 (05:47→12:20)
[2021-08-04] MEDS: buprenorphine HCL 8 MG SUBL SL SCH (08:43)
--- NOTE | 2021-08-04 09:22 | Discharge Summary ---
Date of Service August 04, 2021 Admission HPI Per Admitting Provider Patient is 45 y/o M with PMH HTN, dyslipidemia, depression, H/O opioid abuse presented to ER with complaint of right axilla and chest redness and pain. Patient states 5 days ago noticed pimple-like area to right axilla which he squeezed. Reports did not have any drainage. Since that time he has developed surrounding erythema and edema which is extended to right chest wall. Complains of significant tenderness to area. Patient states past couple of days with tactile fever, headache, body aches, nausea, vomiting, diarrhea. Patient states couple days ago had tick attached to right chest under right breast. He reports he attempted to remove however is uncertain if he removed entire tick. 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 Denies diaphoresis, hematemesis, hematochezia, syncope, vision changes, neck pain, SOB, orthopnea, palpitations, cough, sore throat, choking, otalgia, rhinorrhea, abdominal pain, paresthesias, weakness, extremity weakness, extremity edema, other rashes, u rinary symptoms. Denies history of known MRSA in past. In ER patient afebrile, P: 79, R: 22, BP 125/76, 98% on room air. WBC:25 ESR: 31, CRP: 17, procalcitonin: 1.0. Negative Lyme. Lactate pending, anaplasmosis pending. CT chest: Right axillary fat stranding and skin thickening likely representing acute infectious/inflammatory process such as cellulitis. Underlying reactive axillary lymph nodes noted. No drainable fluid collection is seen. In ER patient given 1 L NSS, Rocephin and vancomycin IV Admission Exam Per Admitting Provider General: mild distress secondary to nausea and pain, WDWN Head: normocephalic, atraumatic Eyes: PERRL, EOM's intact, conjunctiva non-injected, anicteric ENT: normal inspection external ears, nose, mucous membranes dry Neck: supple, trachea midline Lungs: clear, no respiratory distress, no wheezing/rhonchi/rales CV: RRR, no murmur, no pretibial edema Chest wall: +scab distal to right breast with small area of erythema. +erythema, warmth right axilla extending to right lateral and anterior chest, no purulent drainage + lymphadenopathy axilla Abd: normal BS, soft, non-tender Ext: no cyanosis, no calf tenderness Neuro: A&O x 3, no focal deficits noted, normal affect Skin: As above on chest wall, + multiple scabbed areas to on arms hands and fingers, skin warm, dry Principal Diagnosis Cellulitis of right chest wall secondary to abscess of right axilla status post incision and drainage of right anterior shoulder abscess secondary to MRSA Chronic pain with history of opiate abuse currently on Subutex Tobacco use Discharge Exam Gen: WD/WN, NAD, sitting in bed, A&Ox3 HEENT: Normocephalic, atraumatic, conjunctivae moist, sclerae anicteric, mucous membranes moist Lung: Clear to Auscultation bilaterally, no wheezes/rales/rhonchi Heart: Regular rate, regular rhythm, no murmurs, rubs, or gallops Abdomen: Soft, NT, ND +BS x 4 Extremities: no edema Skin: Warm, no rash. + Surgical dressings in R axilla, wound vac in place Discharge Data Allergies Allergy/AdvReac Type Severity Reaction Status Date / Time No Known Allergies Allergy Verified 07/27/21 10:35 Consultations 07/27/21 12:10 ED Decision to Admit Stat 07/28/21 15:31 Consult Infectious Diseases Routine 07/31/21 14:15 Consult General Surgery Routine Procedures Performed Operation Date: 08/01/21 07:30 Actual Procedures p Incision and Drainage, Right Axillary Shoulder Abscess(Right) - Cody Murillo MD, FACS Ordered Studies Laboratory Results WBC 10.41 K/uL (4.8-10.8) 08/03/21 05:51 RBC 3.63 M/uL (4.7-6.1) L 08/03/21 05:51 Hgb 11.1 g/dL (14.0-18.0) L 08/03/21 05:51 Hct 34.1 % (42-52) L 08/03/21 05:51 MCV 93.9 fL (80-100) 08/03/21 05:51 MCH 30.6 pg (25-34) 08/03/21 05:51 MCHC 32.6 g/dL (32-36) 08/03/21 05:51 RDW Std Deviation 46.3 fL (36.4-46.3) 08/03/21 05:51 RDW Coeff of Cathleen 13.5 % (11.5-14.5) 08/03/21 05:51 Plt Count 301 K/uL (130-400) 08/03/21 05:51 MPV 9.4 fL (7.4-10.4) 08/03/21 05:51 Immature Gran % (Auto) 0.4 % 07/28/21 07:23 Neut % (Auto) 88.3 % 07/28/21 07:23 Lymph % (Auto) 5.2 % 07/28/21 07:23 [place] % (Auto) 6.0 % 07/28/21 07:23 Eos % (Auto) 0.1 % 07/28/21 07:23 Baso % (Auto) 0.0 % 07/28/21 07:23 Neut # (Auto) 23.99 K/uL (1.4-6.5) H 07/28/21 07:23 Lymph # (Auto) 1.40 K/uL (1.2-3.4) 07/28/21 07:23 [place] # (Auto) 1.63 K/uL (0.11-0.59) H 07/28/21 07:23 Eos # (Auto) 0.04 K/uL (0-0.5) 07/28/21 07:23 Baso # (Auto) 0.01 K/uL (0-0.2) 07/28/21 07:23 Immature Gran # (Auto) 0.10 K/uL (0.00-0.02) H 07/28/21 07:23 ESR 31 mm/hr (0-15) H 07/27/21 09:55 Sodium 134 mmol/L (136-145) L 08/03/21 05:51 Potassium 4.6 mmol/L (3.5-5.1) 08/03/21 05:51 Chloride 102 mmol/L (98-107) 08/03/21 05:51 Carbon Dioxide 28 mmol/L (21-32) 08/03/21 05:51 Anion Gap 4.0 (3-11) 08/03/21 05:51 BUN 24 mg/dl (7-18) H 08/03/21 05:51 Creatinine 1.02 mg/dl (0.6-1.4) 08/03/21 05:51 Est Cr Clr Drug Dosing 116.1 ml/min 08/03/21 05:51 Est GFR ( Amer) 102.4 ml/min 08/03/21 05:51 Est GFR (Non-Af Amer) 88.4 ml/min 08/03/21 05:51 BUN/Creatinine Ratio 23.8 (10-20) H 08/03/21 05:51 Glucose 98 mg/dl (70-99) 08/03/21 05:51 Lactate 1.2 mmol/L (0.4-2.0) 07/27/21 13:25 Calcium 9.2 mg/dl (8.5-10.1) 08/03/21 05:51 Phosphorus 3.7 mg/dl (2.5-4.9) 08/02/21 07:16 Magnesium 2.3 mg/dl (1.8-2.4) 08/02/21 07:16 Total Bilirubin 0.7 mg/dl (0.2-1) 07/27/21 09:55 AST 15 U/L (15-37) 07/27/21 09:55 ALT 24 U/L (12-78) 07/27/21 09:55 Alkaline Phosphatase 89 U/L (45-117) 07/27/21 09:55 Troponin I < 0.015 ng/ml (0-0.045) 07/27/21 09:55 C-Reactive Protein 17.30 mg/dl (0-0.29) H 07/27/21 09:55 Total Protein 7.9 gm/dl (6.4-8.2) 07/27/21 09:55 Albumin 3.4 gm/dl (3.4-5.0) 07/27/21 09:55 Globulin 4.5 gm/dl (2.5-4.0) H 07/27/21 09:55 Albumin/Globulin Ratio 0.8 (0.9-2) L 07/27/21 09:55 Procalcitonin 1.07 ng/ml (0-0.5) H 07/27/21 09:55 Urine Color Dark Yellow 07/27/21 Unknown Urine Appearance Clear (Clear) 07/27/21 Unknown Urine pH 7.0 (4.5-7.5) 07/27/21 Unknown Ur Specific [place] 1.031 (1.000-1.030) H 07/27/21 Unknown Urine Protein 1+ (Negative) H 07/27/21 Unknown Urine Glucose (UA) Negative (Negative) 07/27/21 Unknown Urine Ketones 1+ (Negative) H 07/27/21 Unknown Urine Blood Negative (Negative) 07/27/21 Unknown Urine Nitrite Negative (Negative) 07/27/21 Unknown Urine Bilirubin Negative (Negative) 07/27/21 Unknown Urine Urobilinogen Negative (Negative) 07/27/21 Unknown Ur Leukocyte Esterase Negative (Negative) 07/27/21 Unknown Urine WBC (Auto) 1-5 /hpf (0-5) 07/27/21 Unknown Urine RBC (Auto) 0-4 /hpf (0-4) 07/27/21 Unknown U Hyaline Cast (Auto) 5-10 /lpf (0-5) H 07/27/21 Unknown U Epithel Cells (Auto) 10-20 /lpf (0-5) H 07/27/21 Unknown Urine Bacteria (Auto) Negative (Negative) 07/27/21 Unknown Nasal Screen MRSA (PCR) Positive (Negative) A 07/27/21 Unknown Vancomycin Trough 7.4 mcg/ml (See Comment) 07/29/21 07:25 A. phagocytophilum DNA Negative (Negative) 07/27/21 09:55 Lyme Disease IgG Ab Negative (Negative) 07/27/21 09:55 Lyme Disease IgM Ab Negative (Negative) 07/27/21 09:55 COVID-19 Eval Order Covid19 at [facility] 07/27/21 11:45 SARS-CoV-2 (PCR) NEGATIVE (Negative) 07/27/21 11:[address] 07/29/21 08:05 CT OF THE CHEST WITHOUT IV CONTRAST CLINICAL HISTORY: Right axillary cellulitis expanding; r/o abscess/path COMPARISON STUDY: Chest CT July 27, 2021. CT DOSE: 918.62 mGy.cm TECHNIQUE: Axial images of the chest were obtained without IV contrast. Images were reviewed in the axial, sagittal, and coronal planes. IV contrast was not administered for this examination. Automated exposure control was utilized for the study. A dose lowering technique was utilized adhering to the principles of ALARA. FINDINGS: No enlarged axillary, mediastinal or hilar lymph nodes are present. Size of the heart is within normal limits. There is no pericardial effusion. No pneumothorax or pleural effusion is noted. There is no consolidation. Central airways are patent. There are no suspicious pulmonary nodules. Visualized portions of the upper abdomen are unremarkable on this unenhanced exam. Extensive stranding and associated fluid within the right axilla is noted. Extension into the right upper extremity and right chest wall is noted. These findings have progressed since CT of July 27, 2021. There is no soft tissue gas. Sensitivity for detection of abscess is diminished on this unenhanced exam but no fluid collection is identified. Prominent right axillary lymph nodes are likely reactive. No erosion of the adjacent bones is identified to suggest osteomyelitis. Associated skin thickening is noted. IMPRESSION: 1. Increase in extent of of the extensive inflammatory process centered within the right axilla, extending into the right upper extremity and right chest wall since CT of July 27, 2021. Associated fluid, stranding and skin thickening consistent with cellulitis. No fluid collection to suggest abscess. No soft tissue gas. 2. Prominent right axillary lymph nodes which are likely reactive. ACT 112: Negative or not required by law. Electronically signed by: Odilon Light M.D. 07/29/2021 10:26 AM Axilla US 07/31/21 13:00 RIGHT AXILLARY ULTRASOUND CLINICAL HISTORY: right axilla, eval for abscess COMPARISON STUDY: Chest CT July 29, 2021. TECHNIQUE: Sonography of the right axilla was performed. FINDINGS: Prominent right axillary lymph nodes are likely reactive. Note is made of a complex right axillary elongated fluid collection which measures 10 x 6.7 x 2.2 cm. This contains hypoechoic material. There is no color flow within this collection. In addition, there is an additional 7.6 x 2.2 x 6.3 cm elongated fluid collection adjacent to the right shoulder. These collections were not clearly evident on CT of July 29, 2021. IMPRESSION: 1. Interval development of an elongated 10 x 6.7 x 2.2 cm complex right axillary fluid collection and an additional complex 7.6 x 2.2 x 6.3 cm fluid collection adjacent to the right shoulder. These at least represent phlegmon and are suspicious for developing abscesses. 2. Prominent right axillary lymph nodes which are likely reactive. ACT 112: Negative or not required by law. Electronically signed by: Odilon Light M.D. 07/31/2021 1:52 PM Hospital Course (1) Cellulitis of chest wall: This is a 45 y/o M with PMH HTN, dyslipidemia, depression, H/O opioid abuse on Subutex who presented to ER 07/28 with complaint of right axilla and chest redness and pain. Per patient he noticed pimple-like area to right axilla 5 days ago which he squeezed. Reports no drainage but progressively developing surrounding erythema and edema since afterwards associated with significant pain/fever/headache. Patient also reports he had tick attached to the right chest and right breast couple of days ago. 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 Denies history of known MRSA in past. MRSA infection of R axilla, cellulitis and abscess: Leukocytosis improved with incision and drainage on of a R axillary abscess consistent with MRSA. Lyme and anaplasma panels were negative Discussed antibiotic treatment course with Dr. Stark of [facility] following results of operative cultures -recommends 10-14 day course Will continue IV dapto until discharge (rocephin discontinued). Plan to discharge on 2 tabs DS Bactrim BID to complete 14 day course Surgery placed wound vac, and Home health coordinated Scheduled to be seen in wound care center on 08/10/21 at 8:00am. Directed to schedule general surgery appointment for 2 weeks after this appointment Pain management with an NSAID, avoid opiates given history of opiate abuse. On PPI for GI prophylaxis HTN (hypertension): BP controlled, continue lisinopril, metoprolol Dyslipidemia: Continue atorvastatin History of opioid abuse: Continue Suboxone Depression: Continue sertraline Tobacco use: Denies nicotine patch Smoking cessation recommended On day of discharge he was mentating and ambulating at baseline. He was hemody namically stable and afebrile and tolerating PO. He was sent home in stable condition with close PCP followup recommended. Total Time Total Time Spent Total Time Spent (In Minutes): 60 Discharge Plan Discharge Items Patient Disposition: Home - Home Health Services Reason For Visit: CELLULITIS Discharge Diagnosis: Cellulitis of right chest wall secondary to abscess of right axilla status post incision and drainage of right anterior shoulder abscess secondary to MRSA Chronic pain with history of opiate abuse currently on Subutex Tobacco use Condition on Discharge: Good Activity: Per Instructions section Lifting: No more than 10 pounds Bathing Comment: may shower; no soaking in tubs/pools Sexual Activity: When tolerated Exercise/Sports: Wait until after follow-up appointment Non-emergency contact: Primary Care Provider and Surgeon Call non-emergency contact if: you have any medication questions, your symptoms worsen, your pain is not controlled, your pain is worsening, your pain is concerning for you, you have a fever, your temperature is above 101.5, your wound has increased redness, your wound has increased drainage and your wound pain has increased Follow-up/Referrals: Cody Murillo MD, FACS [Physician] - (Please call to schedule follow up in clinic within 2 weeks after your visit at the wound care center) Bentley Valles [Primary Care Provider] - Diet: Regular Addtl Attending Provider Instructions: Please follow all medication instructions per discharge medication list below. You are being placed on an oral antibiotic to complete the treatment of your infection. Please follow-up with the wound care clinic per time and date below. Additionally, please follow-up with the surgeon, Dr. Cody Murillo, and your primary care doctor within 1 to 2 weeks of discharge from the hospital. This will be to ensure your wound is healing appropriately and you are still doing well. Please utilize [id number] Motrin or other nonsteroidal anti-inflammatory drugs as needed for pain. Smoking cessation is strongly recommended as this is terrible for your health. Please work with your primary care doctor on ways to help you quit. It was a pleasure taking care of you! Please call if you have any questions or problems. You can reach a [facility] hospitalist on duty at [facility] 24 hours a day by calling [phone]. Take care of yourself. Floridalma Britton DO [facility] Hospitalist Addtl [employer] Treater Provider Instructions: You will have follow up in the wound care center on 08/10/21 at 8:00am. Their office # is [phone]. [address] [facility], [facility] [id number] Pending Studies at Discharge: No Stand-Alone Forms: My [facility], Smoking Cessation Medications and DC Order Prescriptions: New sulfamethoxazole-trimethoprim [Bactrim DS] 800-160 mg tablet 2 tab PO BID Qty: 44 RF: 0 Probiotic Acidophilus 1.5 mg (250 million cell) capsule 100 mmu cells PO DAILY Qty: 14 RF: 0 Continued celecoxib [Celebrex] 200 mg capsule 200 mg PO QDD RF: 0 atorvastatin [Lipitor] 20 mg tablet 20 mg PO HS RF: 0 trazodone 50 mg tablet 50 mg PO HS RF: 0 metoprolol succinate [Toprol XL] 50 mg tablet extended release 24 hr 50 mg PO BID RF: 0 sertraline [Zoloft] 100 mg tablet 100 mg PO QAM RF: 0 lisinopril [Zestril] 10 mg tablet 10 mg PO QAM RF: 0 cholecalciferol (vitamin D3) [Dialyvite Vitamin D] 125 mcg (5,000 unit) capsule 5,000 unit PO QAM RF: 0 aspirin 81 mg Tablet,Delayed Release (Dr/Ec) 81 mg PO DAILY RF: 0 buprenorphine HCl 8 mg Tablet, Sublingual 8 mg SUBLINGUAL BID RF: 0 No Action sulfamethoxazole-trimethoprim [Bactrim DS] 800-160 mg tablet 2 tab PO Q12H Qty: 44 RF: 0 Discharge Orders: Discharge Order (Routine); Ordered 08/04/21 Ordered By: Floridalma Dee/Other Patient Handouts: Negative Pressure Wound Therapy Admission Data Admit Date/Time: 07/29/21 09:04 Attending Provider: Floridalma Britton Admit Provider: Brian Espinal Primary Care Provider: Bentley Valles Other Providers: Cody Murillo ; Carrie Lieberman Other Interventions: Discharge Summary Assessment (RN) Last Done: 08/04/21 14:12
[2021-08-04] MEDS: METOPROLOL SUCC 50MG EXT REL TAB PO SCH (09:38)
[2021-08-04] MEDS: CHOLECALCIFEROL 1,000 UNITS 25 MCG TAB PO SCH (09:38)
[2021-08-04] MEDS: lisinopril 10 MG TAB PO SCH (09:39)
[2021-08-04] MEDS: ADVANCED PROBIOTIC 1250 MG CAPSULE PO SCH (09:39)
[2021-08-04] MEDS: PANTOprazole 40 MG TAB PO SCH (09:39)
[2021-08-04] MEDS: HEPARIN SOD 5,000 UNIT/0.5 ML VIAL SQ SCH (09:39)
[2021-08-04] MEDS: SERTRALINE HCL 100 MG TABLET PO SCH (09:39)
[2021-08-04] MEDS: ASPIRIN 81 MG ECTAB PO SCH (09:39)
[2021-08-04] MEDS ORDERED: IBUPROFEN 800 MG TAB PO PRN (10:32)
--- NOTE | 2021-08-04 10:39 | Surgery Progress Note ---
Date of Service August 04, 2021 Assessment & Plan Admission and Anticipated Discharge Date Admission Date: July 29, 2021 Supervising Physician Co-Signing Physician Notes Patient seen and examined by me, care coordinated with Juany Hudson PA-C, please refer to her note above for further detail. Patient is s/p I&D of axillary abscesses. He is doing well, in no acute distress. Wound vac applied today. Currently no fevers, chills, chest pain, shortness of breath, no abdominal pain, nausea or vomiting, overall comfortable. He is awake alert oriented answering questions appropriately. Lungs are clear to auscultation bilaterally without any wheezing rhonchi or crackles, heart sounds regular, abdomen soft nontender nondistended, positive bowel sounds. Patient moves extremities spontaneously. Culture posit. for MRSA, plan to DC on Bactrim, w/ wound vac and close follow up in wound clinic. Babatunde Whitney MD 08/04/2021 10 :43am Dr. Lieberman Culture posit. for MRSA may start po clindamycin for 7 days, pt can be discharged home today, F/U [facility] wound care center, F/U Dr Delta Murillo prn, Subjective Patient seen and examined in 322. Continues to feel better with minimal discomfort at wound site. Wound VAC in place. No fever, chills, chest pain, shortness of breath, nausea, vomiting, abdominal pain, dysuria, diarrhea constip ation. Tolerating diet without issue. Plan for discharge once wound VAC and home health can be coordinated. 08/04/2021 10:39Am DR. Lieberman F/U S/P Incision and Drainage, Right Axillary Shoulder Abscess POD 3 pt is doing fine, no fever, Wound VAC on incision site, Physical Exam Constitutional: WD/WN, vitals as above Eyes: PERRL, conjunctivae normal, anicteric sclerae Neck: trachea midline, no thyromegaly Respiratory: normal respiratory effort, lungs clear to auscultation Cardiovascular: RRR, no murmur, no edema Gastrointestinal (Abdomen): normal bowel sounds, soft, nontender, no hepatosplenomegaly Musculoskeletal: no cyanosis or clubbing, extremities motor strength 5/5 Skin: wound vac on incision site ( right shoulder Neurologic: patellar DTR's 2+ bilat, sensation intact Psychiatric: A+Ox3, euthymic affect Results & Data ([facility]) Vital Signs (Past 12 Hours) Vital Signs Temp Pulse Resp BP Pulse Ox 08/04/21 07:49 36.5 C 52 L 16 117/69 99 08/03/21 23:02 36.9 C 58 L 16 120/66 98
== END 2021-08-04 15:33 | disposition home health service (06) | DRG 580 ==
LOC: 2W 09:21 → ED 09:21 → 2W 14:59 → SUATTDRO 07-29 09:04 → 3E 07-31 02:36